=== PATIENT | female | born 1945 | race Caucasian/White ===

== ENCOUNTER 2016-12-27 20:50 | Emergency (ER) | payer MEDICARE, MEDICAID ==
[2016-12-27] MEDS ORDERED: IPRATROPIUM/ALBUTEROL 3 ML NEB INH STA (21:06)
[2016-12-27] MEDS ORDERED: IPRATROPIUM/ALBUTEROL 3 ML NEB INH ONE (21:29)
[2016-12-27] MEDS ORDERED: AZITHROMYCIN 250 MG TABLET PO STA (22:05)
[2016-12-27] MEDS ORDERED: AZITHROMYCIN 250 MG TABLET PO ONE (22:17)
== END 2016-12-27 22:26 | disposition home or self-care (01) ==
DX: J18.9 Pneumonia, unspecified organism (principal); I10 Essential (primary) hypertension; E11.42 Type 2 diabetes mellitus with diabetic polyneuropathy; Z79.4 Long term (current) use of insulin; I51.9 Heart disease, unspecified; I25.10 Atherosclerotic heart disease of native coronary artery without angina pectoris; I25.2 Old myocardial infarction; J44.9 Chronic obstructive pulmonary disease, unspecified; K21.9 Gastro-esophageal reflux disease without esophagitis; Z79.82 Long term (current) use of aspirin
CPT/HCPCS: 36415; 71020; 80053; 83690; 83880; 84484; 85025; 87275; 87276; 93005; 93010; 94640; 99283; 99284; A9270; J7620

== ENCOUNTER 2017-06-19 19:28 | Emergency (ER) | payer MEDICARE, MEDICAID ==
[2017-06-19] MEDS ORDERED: CYCLOBENZAPRINE 10 MG TABLET PO STA (20:18)
--- NOTE | 2017-06-19 20:22 | ED Physician Documentation ---
PD HPI URI - Stated complaint Stated Complaint: RASH/COUGH - Chief complaint Chief Complaint: Resp - History obtained from History obtained from: Patient - History of Present Illness Timing - onset: Other (71-year-old woman with history of coronary disease status post remote bypass presents with productive cough, nasal drainage and left ear pain associated with sore throat and a rash on the front of her neck over the last 5 days. She has had 2 episodes where her left eye briefly hurt but there was no loss of vision. She also has had some urinary frequency and wonders if she might have a bladder infection.) Review of Systems Constitutional: reports: Fatigue. denies: Fever, Chills Ears: reports: Ear pain. denies: Loss of hearing Nose: reports: Rhinorrhea / runny nose, Congestion Throat: reports: Sore throat Cardiac: denies: Chest pain / pressure, Palpitations Respiratory: reports: Cough. 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 Cardiovascular: CABG - Present Medications Home Medications: Ambulatory Orders Medication Instructions Recorded Confirmed Aspirin [Aspirin EC] 81 mg PO DAILY 02/17/14 10/02/16 Clopidogrel [Plavix] 75 mg PO DAILY 02/17/14 10/02/16 Albuterol Sulfate [Proair Hfa] 8.5 gm IH Q4H PRN 05/23/15 10/02/16 Lisinopril 20 mg PO DAILY 05/23/15 10/02/16 Amlodipine Besylate 10 mg PO DAILY 09/14/15 10/02/16 Atorvastatin Calcium 40 mg PO QPM 09/14/15 10/02/16 Clopidogrel Bisulfate [Plavix] 75 mg PO DAILY 09/14/15 10/02/16 Fluticasone Propionate [Flonase 9.9 ml NS BID 09/14/15 10/02/16 Allergy Relief] Insulin Aspart (Vial) [NovoLOG] 10 unit SUBQ TID 09/14/15 10/02/16 Isosorbide Dinitrate 30 mg PO DAILY 09/14/15 10/02/16 Metoprolol Tartrate 50 mg PO TID 09/14/15 10/02/16 Ranitidine HCl 150 mg PO BID 09/14/15 10/02/16 Cephalexin [Keflex] 500 mg PO TID #15 capsule 08/30/16 10/02/16 Clotrimazole/Betamethasone Dip 1 applic TP TID #15 cream..g. 08/30/16 10/02/16 [Clotrimazole-Betamethasone Crm] Mupirocin 1 applic TP TID #15 oint...g. 08/30/16 10/02/16 Azithromycin [Zithromax] 250 mg PO DAILY #4 tablet 12/27/16 Benzonatate [Tessalon Perle] 100 mg PO Q8H PRN #12 capsule 12/27/16 Albuterol Sulfate [Proventil Hfa 1 - 2 puffs IH Q4H PRN #1 06/19/17 Inhaler] hfa.aer.ad Cephalexin [Keflex] 500 mg PO QID #40 capsule 06/19/17 Cyclobenzaprine [Flexeril] 10 mg PO TID PRN #20 tablet 06/19/17 predniSONE [Deltasone] 60 mg PO DAILY 5 Days 06/19/17 - Allergies Allergies/Adverse Reactions: Allergies Allergy/AdvReac Type Severity Reaction Status Date / Time codeine Allergy Intermediate Rash Verified 10/14/16 15:29 - Social History Does the pt smoke?: No Smoking Status: Never smoker Does the pt drink ETOH?: No Does the pt have substance abuse?: No - Immunizations Immunizations are current?: No - POLST Patient has POLST: No PD ED PE NORMAL - Vitals Vital signs reviewed: Yes - General General: Alert and oriented X 3, No acute distress - HEENT HEENT: PERRL, EOMI, Other (Serous otitis on the left, mild eczema ant L neck. Oropharynx appears normal.) - Neck Neck: Supple, no meningeal sign, No bony TTP - Cardiac Cardiac: RRR, No murmur - Respiratory Respiratory: No respiratory distress, Other (Rhonchorous throughout) - Abdomen Abdomen: Non tender - Derm Derm: No rash - Neuro Neuro: Alert and oriented X 3, Normal speech - Psych Psych: Normal mood, Normal affect Results - Vitals Vitals: Vital Signs - 24 hr 06/19/17 19:34 Temperature 36.5 C Heart Rate 63 Respiratory 18 Rate Blood Pressure 155/78 H O2 Saturation 99 Oxygen O2 Source Room air - Labs Labs: Laboratory Tests 06/19/17 20:25 Urine Color LT. YELLOW Urine Clarity CLEAR Urine pH 6.5 Ur Specific [place] 1.015 Urine Protein 100 H Urine Glucose (UA) NEGATIVE Urine Ketones NEGATIVE Urine Occult Blood NEGATIVE Urine Nitrite NEGATIVE Urine Bilirubin NEGATIVE Urine Urobilinogen 0.2 (NORMAL) Ur Leukocyte Esterase NEGATIVE Urine RBC None Seen Urine WBC 11-25 H Ur Squamous Epith Cells NONE SEEN Urine Bacteria Few Ur Microscopic Review INDICATED Urine Culture Comments INDICATED PD MEDICAL DECISION MAKING - ED course ED course: 71-year-old woman with multiple complaints, found to have a UTI, bronchitis with potential underlying COPD although she has never been formally diagnosed with this, serous otitis on the left and eczema. Should be well treated with combination of steroids, Keflex, albuterol. Departure - Departure Disposition: Home, Self Care Clinical Impression: Bronchitis, Eczema of face UTI (urinary tract infection) Qualifiers: Urinary tract infection type: acute cystitis Hematuria presence: without hematuria Qualified Code(s): N30.00 - Acute cystitis without hematuria Condition: Good Record reviewed to determine appropriate education?: Yes Instructions: ED Bronchitis Asthmatic, ED UTI Cystitis Female Prescriptions: predniSONE [Deltasone] 60 mg PO DAILY 5 Days Cyclobenzaprine [Flexeril] 10 mg PO TID PRN #20 tablet PRN Reason: Pain Cephalexin [Keflex] 500 mg PO QID #40 capsule Albuterol Sulfate [Proventil Hfa Inhaler] 1 - 2 puffs IH Q4H PRN #1 hfa.aer.ad PRN Reason: Cough Comments: Call your doctor to arrange a follow-up appointment, make the next available appointment. In the interim, return anytime if worse or if new symptoms develop. Your blood pressure was elevated today on check into the emergency department. This does not mean that you have hypertension, it is a common phenomenon to come to the emergency department and have elevated blood pressure. I recommend that she see her primary care physician within the week to have it rechecked when you are feeling better.
[2017-06-19] MEDS ORDERED: CYCLOBENZAPRINE 10 MG TABLET PO ONE (20:31)
[2017-06-19 20:37] LABS: BILIRUBIN,URINE NEGATIVE (NEGATIVE); PH,URINE 6.5 PH (5.0-7.5)
[2017-06-19 20:38] LABS: UA w/ MICROSCOPIC CHARGE YES
[2017-06-19 20:47] LABS: UR CULTURE IF IND INDICATED
[2017-06-19] MEDS ORDERED: CEPHALEXIN 250 MG CAPSULE PO STA (20:48)
[2017-06-19] MEDS ORDERED: predniSONE 20 MG TABLET PO STA (20:52)
[2017-06-19] MEDS ORDERED: CEPHALEXIN 250 MG CAPSULE PO ONE (21:06)
[2017-06-19] MEDS ORDERED: predniSONE 20 MG TABLET ONE (21:07)
[2017-06-19 21:09] VITALS: BP 162/69
== END 2017-06-19 21:09 | disposition home or self-care (01) ==
LOC: ED 19:28
DX: J40 Bronchitis, not specified as acute or chronic (principal); L30.9 Dermatitis, unspecified; N30.00 Acute cystitis without hematuria; I10 Essential (primary) hypertension; E11.42 Type 2 diabetes mellitus with diabetic polyneuropathy; I25.2 Old myocardial infarction; I25.10 Atherosclerotic heart disease of native coronary artery without angina pectoris; Z95.1 Presence of aortocoronary bypass graft; Z79.82 Long term (current) use of aspirin; Z79.4 Long term (current) use of insulin; Z86.73 Personal history of transient ischemic attack (TIA), and cerebral infarction without residual deficits
CPT/HCPCS: 81001; 87086; 99283; A9270; J7512; 81003

== ENCOUNTER 2017-08-13 14:03 | Outpatient (CLI) | payer MEDICARE, MEDICAID ==
--- NOTE | 2017-08-14 12:59 | Mammography Report ---
DIGITAL SCREENING MAMMOGRAM: 08/13/2017 CLINICAL INDICATION: A 71-year-old for screening. COMPARISON: 08/2013, 01/2012, 04/2010 TECHNIQUE: Routine CC and MLO projections were obtained of the breasts. FINDINGS: The breasts again demonstrate scattered fibroglandular densities bilaterally. Coarse, typ ically benign calcifications are present. No suspicious masses, clustered microcalcifications, or re gions of architectural distortion are identified. IMPRESSION: BENIGN FINDINGS. RECOMMENDATION: Routine annual screening unless otherwise clinically indicated. BIRADS CATEGORY 2 - BENIGN FINDINGS. STANDARD QUALIFYING STATEMENTS 1. This examination was reviewed with the aid of Computer-Aided Detection (CAD). 2. A negative or benign imaging report should not delay biopsy if clinically suspicious findings are present. Consider surgical consultation if warranted. More than 5% of cancers are not identified by i maging. 3. Dense breasts may obscure an underlying neoplasm. JOB #: [id number] EXT JOB #:[id number]
== END 2017-08-13 14:04 | disposition home or self-care (01) ==
LOC: DI.N 14:03
PROVIDERS: ATTEND Family Medicine
DX: Z12.31 Encounter for screening mammogram for malignant neoplasm of breast (principal)
CPT/HCPCS: 77067

== ENCOUNTER 2017-09-07 16:21 | Emergency (ER) | payer MEDICARE, MEDICAID ==
[2017-09-07 16:33] VITALS: BP 186/76
[2017-09-07] MEDS ORDERED: AZITHROMYCIN 250 MG TABLET PO STA (16:46)
[2017-09-07] MEDS ORDERED: CYCLOBENZAPRINE 10 MG TABLET PO STA (16:46)
--- NOTE | 2017-09-07 16:46 | ED Physician Documentation ---
History of Present Illness - Stated complaint Stated Complaint: NECK/EAR PX - Chief complaint Chief Complaint: General - History obtained from History obtained from: Patient, Family - History of Present Illness Timing: How many days ago (2) Pain level max: 7 Pain level now: 7 Improved by: remaining still Worsened by: movement - Additonal information Additional information: Patient is a 71-year-old female who presents to the emergency department with bilateral ear pain, nasal congestion, mild dry cough as well as bilateral neck pain worsening for the past few days. States is sleeping on new pillows. Has not taken anything for the pain at home. Denies any fevers. No vomiting. No recent travel. Review of Systems Constitutional: denies: Fever, Chills Ears: reports: Ear pain Nose: reports: Rhinorrhea / runny nose, Congestion GI: denies: Abdominal Pain, Nausea, Vomiting Skin: denies: Rash Musculoskeletal: denies: Back pain Neurologic: denies: Focal weakness, Numbness, Confused, Altered mental status PD PAST MEDICAL HISTORY - Past Medical History Cardiovascular: Hypertension, Coronary artery disease, [place], Murmur Respiratory: COPD Neuro: CVA, Peripheral neuropathy Endocrine/Autoimmune: Type 2 diabetes GI: GERD : Renal insuffiency, Nocturia, Frequency Psych: Schizophrenia Musculoskeletal: Chronic back pain - Past Surgical History 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 08/30/16 09/07/17 Albuterol Sulfate [Proventil Hfa 1 - 2 puffs IH Q4H PRN #1 06/19/17 09/07/17 Inhaler] hfa.aer.ad Azithromycin [Zithromax] 250 mg PO DAILY #4 tablet 09/07/17 Cyclobenzaprine [Flexeril] 10 mg PO TID PRN #20 tablet 09/07/17 Glipizide [Glipizide Xl] 5 mg PO DAILY 09/07/17 09/07/17 - Allergies Allergies/Adverse Reactions: Allergies Allergy/AdvReac Type Severity Reaction Status Date / Time codeine Allergy Intermediate Rash Verified 10/14/16 15:29 - Social History Does the pt smoke?: No Smoking Status: Never smoker Does the pt drink ETOH?: No Does the pt have substance abuse?: No - Immunizations Immunizations are current?: No - POLST Patient has POLST: No PD ED PE NORMAL - Vitals Vital signs reviewed: Yes - General General: Alert and oriented X 3, No acute distress - HEENT HEENT: Other (Bilateral tympanic membranes are erythematous, dull, bulging with loss of landmarks. Fluid present bilaterally.) - Neck Neck: Supple, no meningeal sign, No bony TTP, No adenopathy, No JVD, No bruit, Other (Paraspinal muscle spasm, left greater than right. Negative Kernig and Brudzinski signs. Pain worsens with movement to the left or right. Has approximately [address].) - Cardiac Cardiac: RRR - Respiratory Respiratory: No respiratory distress, Clear bilaterally - Abdomen Abdomen: Soft, Non tender, Non distended - Back Back: No CVA TTP, No spinal TTP - Derm Derm: Warm and dry, No rash - Neuro Neuro: Alert and oriented X 3, vice president regulatory 2-12 intact, No motor deficit, No sensory deficit, Normal speech - Psych Psych: Normal mood, Normal affect Results - Vitals Vitals: Vital Signs - 24 hr 09/07/17 16:28 Temperature 36.6 C Heart Rate 73 Respiratory 18 Rate Blood Pressure 186/76 H O2 Saturation 99 Oxygen O2 Source Room air PD MEDICAL DECISION MAKING - ED course Complexity details: reviewed old records, considered differential, d/w patient, d/w family ED course: Patient is a 71-year-old female who presents to the emergency department with what appears to be cervical spine muscle spasm as well as a bilateral acute otitis media. Will place on antibiotics for the ear infection and muscle relaxants for the neck muscle spasm. These have occurred in her in the past and have responded well to Flexeril in the past. No evidence of meningitis, subarachnoid hemorrhage. No neurological deficits. No evidence of carotid artery dissection or vertebral artery dissection. Patient is well-appearing, nontoxic. Afebrile. Patient counseled regarding signs and symptoms for which I believe and urgent re-evaluation would be necessary. Patient with good understanding of and agreement to plan and is comfortable going home at this time This document was made in part using voice recognition software. While efforts are made to proofread this document, sound alike and grammatical errors may occur. Departure - Departure Disposition: Home, Self Care Clinical Impression: Neck muscle spasm Otitis media Qualifiers: Otitis media type: suppurative Chronicity: acute Laterality: bilateral Recurrence: not specified as recurrent Spontaneous tympanic membrane rupture: without spontaneous rupture Qualified Code(s): H66.003 - Acute suppurative otitis media without spontaneous rupture of ear drum, bilateral Condition: Good Instructions: ED Otitis Media Acute Adult Follow-Up: JOSE YOON [Primary Care Provider] - Within 1 week Prescriptions: Azithromycin [Zithromax] 250 mg PO DAILY #4 tablet Cyclobenzaprine [Flexeril] 10 mg PO TID PRN #20 tablet PRN Reason: Spasms Comments: Return if you worsen. This should improve over the next few days. Continue to gently range her neck at home. You can use Tylenol as needed for pain. Take all antibiotics until gone. Discharge Date/Time: 09/07/17 17:10
[2017-09-07] MEDS ORDERED: ACETAMINOPHEN 325 MG TABLET PO STA (16:47)
[2017-09-07] MEDS ORDERED: ACETAMINOPHEN 325 MG TABLET PO ONE (16:58)
[2017-09-07] MEDS ORDERED: AZITHROMYCIN 250 MG TABLET PO ONE (16:59)
[2017-09-07] MEDS ORDERED: CYCLOBENZAPRINE 10 MG TABLET PO ONE (16:59)
== END 2017-09-07 17:10 | disposition home or self-care (01) ==
LOC: ED 16:21
DX: M62.838 Other muscle spasm (principal); H66.003 Acute suppurative otitis media without spontaneous rupture of ear drum, bilateral; H66.93 Otitis media, unspecified, bilateral; I10 Essential (primary) hypertension; I25.10 Atherosclerotic heart disease of native coronary artery without angina pectoris; E11.42 Type 2 diabetes mellitus with diabetic polyneuropathy; Z86.73 Personal history of transient ischemic attack (TIA), and cerebral infarction without residual deficits
CPT/HCPCS: 99283; A9270

== ENCOUNTER 2017-09-08 13:28 | Emergency (ER) | payer MEDICARE, MEDICAID ==
[2017-09-08] MEDS ORDERED: KETOROLAC 60 MG/2 ML VIAL IM STA (16:00)
[2017-09-08] MEDS ORDERED: DEXAMETHASONE 10 MG/ML VIAL PO STA (16:00)
--- NOTE | 2017-09-08 16:04 | ED Physician Documentation ---
PD HPI HEENT - Stated complaint Stated Complaint: NECK PX,BILATERAL EAR PX - Chief complaint Chief Complaint: Heent - History obtained from History obtained from: Patient, Family - History of Present Illness Timing - onset: How many days ago (5) Timing - duration: Days (5) Timing - details: Gradual onset, Still present Location: Right ear, Left ear, Other (neck) Associated symptoms: Fever, Congestion, Rhinorrhea, Swollen nodes, Headache, Cough Similar symptoms before: Diagnosis (OM) Recently seen: Emergency Dept - Additional information Additional information: 71-year-old female was seen in the emergency department yesterday for cough and congestion is been going on for about 5 days. She was diagnosed with otitis media. She was placed on azithromycin and given some Flexeril for her neck pain. She has a very stiff neck and this is been a central feature and the reason she is come back today for evaluation. She needs something stronger for pain in her neck. She is feeling some bloating in her abdomen which she believes may be related to taking the antibiotic. Review of Systems Constitutional: reports: Myalgias, Fatigue. denies: Fever, Chills Eyes: denies: Decreased vision Ears: reports: Ear pain Nose: reports: Rhinorrhea / runny nose, Congestion Throat: reports: Sore throat Cardiac: denies: Chest pain / pressure, Palpitations Respiratory: reports: Cough. denies: Dyspnea GI: denies: Vomiting : denies: Dysuria Skin: denies: Rash Musculoskeletal: reports: Neck pain. 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 08/30/16 09/08/17 Albuterol Sulfate [Proventil Hfa 1 - 2 puffs IH Q4H PRN #1 06/19/17 09/08/17 Inhaler] hfa.aer.ad Azithromycin [Zithromax] 250 mg PO DAILY #4 tablet 09/07/17 09/08/17 Cyclobenzaprine [Flexeril] 10 mg PO TID PRN #20 tablet 09/07/17 09/08/17 Glipizide [Glipizide Xl] 5 mg PO DAILY 09/07/17 09/08/17 Amox/Clav 875/125 [Augmentin] 1 each PO Q12H #20 tablet 09/08/17 traMADol [Ultram] 50 - 100 mg PO Q6H PRN #20 tablet 09/08/17 - Allergies Allergies/Adverse Reactions: Allergies Allergy/AdvReac Type Severity Reaction Status Date / Time codeine Allergy Intermediate Rash Verified 09/08/17 13:40 - Social History Does the pt smoke?: No Smoking Status: Never smoker Does the pt drink ETOH?: No Does the pt have substance abuse?: No - Immunizations Immunizations are current?: Yes - POLST Patient has POLST: No PD ED PE NORMAL - Vitals Vital signs reviewed: Yes (hypertensive) - General General: No acute distress, Well developed/nourished - HEENT HEENT: Atraumatic, PERRL, EOMI, Other (both TM's have erythema along the umbo with rounding of the umbo) - Neck Neck: No bony TTP, Other (The neck is stiff and there is significant paraspinous muscle spasms bilaterally worse on the left. ) - Cardiac Cardiac: RRR, No murmur - Respiratory Respiratory: No respiratory distress, Clear bilaterally - Abdomen Abdomen: Soft, Non tender - Back Back: No CVA TTP, No spinal TTP - Derm Derm: Normal color, Warm and dry, No rash - Extremities Extremities: No deformity, No edema - Neuro Neuro: No motor deficit, No sensory deficit Eye Opening: Spontaneous Motor: Obeys Commands Verbal: Oriented GCS Score: 15 - Psych Psych: Normal mood, Normal affect Results - Vitals Vitals: Vital Signs - 24 hr 09/08/17 13:37 Temperature 36.6 C Heart Rate 89 Respiratory 16 Rate Blood Pressure 156/78 H O2 Saturation 98 Oxygen O2 Source Room air PD MEDICAL DECISION MAKING - ED course Complexity details: reviewed old records, reviewed results, re-evaluated patient , considered differential, d/w patient, d/w family ED course: 71-year-old female with otitis media appears to have significant torticollis associated with this and here in the emergency department she is administered dexamethasone 10 mg orally and Toradol 60 mg IM. We will change her antibiotic and write a script for a limited amount of tramadol. Departure - Departure Disposition: 01 Home, Self Care Clinical Impression: Neck muscle spasm Otitis media Qualifiers: Otitis media type: suppurative Chronicity: acute Laterality: bilateral Recurrence: not specified as recurrent Spontaneous tympanic membrane rupture: without spontaneous rupture Qualified Code(s): H66.003 - Acute suppurative otitis media without spontaneous rupture of ear drum, bilateral Condition: Stable Instructions: ED Otitis Media Acute Adult, Torticollis Follow-Up: [facility] [Provider Group] Prescriptions: Amox/Clav 875/125 [Augmentin] 1 each PO Q12H #20 tablet traMADol [Ultram] 50 - 100 mg PO Q6H PRN #20 tablet PRN Reason: Pain
[2017-09-08] MEDS ORDERED: DEXAMETHASONE 10 MG/ML VIAL ONE (16:08)
[2017-09-08] MEDS ORDERED: KETOROLAC 60 MG/2 ML VIAL ONE (16:08)
[2017-09-08 17:04] VITALS: BP 155/79
== END 2017-09-08 17:09 | disposition home or self-care (01) ==
LOC: ED 13:28
DX: M43.6 Torticollis (principal); M62.838 Other muscle spasm; M54.2 Cervicalgia; H66.003 Acute suppurative otitis media without spontaneous rupture of ear drum, bilateral; I10 Essential (primary) hypertension; E11.42 Type 2 diabetes mellitus with diabetic polyneuropathy; Z79.84 Long term (current) use of oral hypoglycemic drugs; Z79.82 Long term (current) use of aspirin
CPT/HCPCS: 96372; 99283

== ENCOUNTER 2017-09-19 07:37 | Outpatient (CLI) | payer MEDICARE, MEDICAID | END 2017-09-19 07:38 | disposition short-term general hospital (02) | LOC: EMS 07:37 | PROVIDERS: ATTEND Surgery | DX: R06.02 Shortness of breath (principal) | CPT/HCPCS: A0425; A0427; A0888 ==

== ENCOUNTER 2017-09-22 13:52 | Outpatient (CLI) | payer MEDICARE, MEDICAID | END 2017-09-22 13:53 | disposition critical access hospital (66) | LOC: EMS 13:52 | PROVIDERS: ATTEND Surgery | DX: R47.81 Slurred speech (principal); G81.94 Hemiplegia, unspecified affecting left nondominant side | CPT/HCPCS: A0425; A0429 ==

== ENCOUNTER 2017-09-22 14:12 | Emergency (ER) | payer MEDICARE, MEDICAID ==
--- NOTE | 2017-09-22 14:24 | ED Physician Documentation ---
PD HPI FOCAL NEURO - Stated complaint Stated Complaint: POSS CVA - History obtained from History obtained from: Patient, Family, EMS - History of Present Illness Timing - onset: Other (71-year-old woman with chronic renal insufficiency, ischemic cardiomyopathy, per the family EF of 25%, and history of TIAs presents with slurred speech and left-sided deficits starting acutely at 1:30 PM and they are sure of the time of onset. There is no associated headache. In route her blood sugar was in the mid 300s. Blood pressure has been controlled, last check in route was approximately 130/80.) Review of Systems Ten Systems: 10 systems reviewed and negative Constitutional: reports: Reviewed and negative Nose: reports: Reviewed and negative Throat: reports: Reviewed and negative Cardiac: reports: Reviewed and negative PD PAST MEDICAL HISTORY - Past Medical History Cardiovascular: Hypertension, Coronary artery disease, [place], Murmur Respiratory: COPD Neuro: CVA, Peripheral neuropathy Endocrine/Autoimmune: Type 2 diabetes GI: GERD : Renal insuffiency, Nocturia, Frequency Psych: Schizophrenia Musculoskeletal: Chronic back pain - Past Surgical History 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, 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 Cardiovascular: CABG - Present Medications Home Medications: Ambulatory Orders Medication Instructions Recorded Confirmed Aspirin [Aspirin EC] 81 mg PO DAILY 02/17/14 09/22/17 Lisinopril 20 mg PO DAILY 05/23/15 09/22/17 Amlodipine Besylate 10 mg PO DAILY 09/14/15 09/22/17 Cyclobenzaprine [Flexeril] 10 mg PO TID PRN #20 tablet 09/07/17 09/22/17 Glipizide [Glipizide Xl] 5 mg PO DAILY 09/07/17 09/22/17 traMADol [Ultram] 50 - 100 mg PO Q6H PRN #20 tablet 09/08/17 09/22/17 Benzonatate [Tessalon Perle] 1 cap PO Q8HR PRN 09/22/17 09/22/17 Clopidogrel [Plavix] 75 mg PO DAILY 09/22/17 09/22/17 Furosemide 40 mg PO DAILY 09/22/17 09/22/17 Isosorbide Mononitrate ER [Imdur] 30 mg PO DAILY 09/22/17 09/22/17 Metoprolol Succinate 50 mg PO DAILY 09/22/17 09/22/17 Ranitidine HCl [Heartburn Relief] 1 tab PO BID 09/22/17 09/22/17 - Allergies Allergies/Adverse Reactions: Allergies Allergy/AdvReac Type Severity Reaction Status Date / Time codeine Allergy Intermediate Rash Verified 09/22/17 14:33 - Social History Does the pt smoke?: No Smoking Status: Never smoker Does the pt drink ETOH?: No Does the pt have substance abuse?: No - Family History Family history: reports: Non contributory - Immunizations Immunizations are current?: Yes - POLST Patient has POLST: No PD ED PE NORMAL - Vitals Vital signs reviewed: Yes - General General: Other (Slightly slow to answer questions but alert and oriented knows the month and the year.) - HEENT HEENT: Other (Large pterygian on the right) - Neck Neck: Supple, no meningeal sign, No bony TTP - Cardiac Cardiac: RRR, No murmur - Respiratory Respiratory: No respiratory distress, Clear bilaterally - Abdomen Abdomen: Soft, Non tender - Back Back: No CVA TTP, No spinal TTP - Extremities Extremities: No edema, No calf tenderness / cord - Psych Psych: Normal mood, Normal affect NIHSS - Time Time: 14:18 - Level of Consciousness Level of consciousness: (0) Alert, Keenly responsive LOC Questions: (0) Answers both Q's correct LOC Commands: (0) Performs both correctly - Gaze Best Gaze: (2) Forced deviation (to the right, does not look past midline to the left) - Visual Visual: (0) No loss - Facial Palsy Facial Palsy: (3) Complete paralysis (of the left) - Motor Arms (both separate) Motor Arm (right): (0) No drift Motor Arm (left): (4) No movement - Motor Legs (both separate) Motor Leg (right): (0) No drift Motor Leg (left): (1) Drift - Limb Ataxia Limb Ataxia: (0) Absent - Sensory Sensory: (2) [id number] loss (left arm) - Best Language Best Language: (0) No aphasia - Dysarthria Dysarthria: (1) [id number] dysarthria - Extinction and Inattention (formally neg Extinction and inattention: (2) Profound mireya-inattention or extinction to more than one modality (left side) - Total Score/Results Total Score/Result: 15 Results - Vitals Vitals: Vital Signs - 24 hr 09/22/17 09/22/17 09/22/17 14:18 14:30 14:45 Temperature 35.8 C L Heart Rate 76 79 76 Respiratory 17 16 20 Rate Blood Pressure 152/63 H 162/82 H 162/70 H O2 Saturation 98 97 97 09/22/17 09/22/17 09/22/17 15:00 15:01 15:15 Temperature Heart Rate 78 77 79 Respiratory 20 18 22 Rate Blood Pressure 151/90 H 142/72 H 179/70 H O2 Saturation 95 97 94 09/22/17 09/22/17 15:30 15:38 Temperature Heart Rate 78 77 Respiratory 20 18 Rate Blood Pressure 183/77 H 183/77 H O2 Saturation 93 95 Oxygen O2 Source Room air - EKG (time done) 1431 Rate: Rate (enter#) (75) Rhythm: NSR [employer]: Normal QRS: LVH Ischemia: Q waves (anterior), Non specific changes Computer interpretation: Agree with computer - Labs Labs: Laboratory Tests 09/22/17 09/22/17 09/22/17 14:41 14:41 14:41 WBC 6.0 RBC 4.62 Hgb 14.7 Hct 43.5 MCV 94.0 MCH 31.8 H MCHC 33.8 RDW 14.4 Plt Count 157 MPV 8.9 Neut # 4.8 Lymph # 0.6 L [place] # 0.5 Eos # 0.1 Baso # 0.0 Absolute Nucleated RBC 0.00 Nucleated RBC % 0.0 PT 12.7 H INR 1.1 Sodium 133 L Potassium 4.4 Chloride 99 L Carbon Dioxide 19 L Anion Gap 15.0 H BUN 41 H Creatinine 4.2 H Estimated GFR (MDRD) 10 L Glucose 268 H Calcium 9.4 Total Bilirubin 0.7 AST 35 ALT 31 Alkaline Phosphatase 74 Total Creatine Kinase 57 CK-MB (CK-2) Troponin I Total Protein 6.9 Albumin 3.4 Globulin 3.5 Albumin/Globulin Ratio 1.0 Lipase 31 09/22/17 14:41 WBC RBC Hgb Hct MCV MCH MCHC RDW Plt Count MPV Neut # Lymph # [place] # Eos # Baso # Absolute Nucleated RBC Nucleated RBC % PT INR Sodium Potassium Chloride Carbon Dioxide Anion Gap BUN Creatinine Estimated GFR (MDRD) Glucose Calcium Total Bilirubin AST ALT Alkaline Phosphatase Total Creatine Kinase CK-MB (CK-2) 3.9 Troponin I 0.22 Total Protein Albumin Globulin Albumin/Globulin Ratio Lipase Procedures - General procedure General procedure: She was difficulty for IV access, I personally placed a 20-gauge IV in the right in the R antecubital fossa after ChloraPrep which flushed well but could not draw labs on arrival. Using real-time ultrasound guidance. PD MEDICAL DECISION MAKING - ED course ED course: 71-year-old woman presents with signs and symptoms of acute CVA with left hemiplegia and hemineglect. NIH stroke scale 15. She was attended to immediately. CT of the head was without acute disease. Dr. Mark from [facility] tele-neurology consulted and spoke with the family, consent was obtained for TPA after discussion of the risks and benefits. The patient nodded her consent in the whole family was in agreement, the daughter signing the form.They understand the risks of intracranial hemorrhage and other bleeding and the fact that TPA does not resolve all cases stroke. Tpa bolus given at 3:00pm - Critical Care Time(min): 40 Time Includes: Direct patient care, Review records, Reassess patient, Document care, Coordinate care, Medical consult, Family consult for tx sep Departure - Departure Disposition: 02 Transfer Acute Care Hosp Clinical Impression: Cerebrovascular accident (CVA) Qualifiers: CVA mechanism: embolism Precerebral and cerebral artery: middle cerebral artery Laterality of affected vessel: right Qualified Code(s): I63.411 - Cerebral infarction due to embolism of right middle cerebral artery ARF (acute renal failure) Qualifiers: Acute renal failure type: unspecified Qualified Code(s): N17.9 - Acute kidney failure, unspecified Condition: Critical
--- NOTE | 2017-09-22 14:38 | CT Preliminary Report ---
Exam: CT HEAD W/O STROKE PROTOCOL IMPRESSION: Generalized age-related cortical atrophic changes without evidence of acute intracranial abnormality. [facility] SITE ID: [id number]
--- NOTE | 2017-09-22 14:41 | CT Report ---
EXAM: CT HEAD EXAM DATE: 09/22/2017 02:30 PM. CLINICAL HISTORY: CVA R side defects. COMPARISON: 07/28/2006. TECHNIQUE: Multiaxial CT images were obtained from the foramen magnum to the vertex. IV contrast: Non e. Reformats: Coronal. In accordance with CT protocol optimization, one or more of the following dose reduction techniques w ere utilized for this exam: automated exposure control, adjustment of mA and/or KV based on patient s ize, or use of iterative reconstructive technique. FINDINGS: Parenchyma: No intraparenchymal hemorrhage. No evidence of mass, midline shift, or CT findings of acu te infarction. Roman-white differentiation is distinct. Diffuse chronic microangiopathic white matter changes. Extraaxial Spaces: Normal for age. No subdural or epidural collections. Ventricles: The ventricles and cortical sulci are enlarged, consistent with age-related tissue loss. Sinuses and orbits: Imaged paranasal sinuses, orbits, and mastoids show no significant abnormality. Bones: Unremarkable. Other: Calcifications of intracranial carotid and vertebral arteries. IMPRESSION: Generalized age-related cortical atrophic changes without evidence of acute intracranial abnormality. [facility] Referring Provider Line: [phone] SITE ID: [id number]
[2017-09-22] MEDS ORDERED: TRANEXAMIC ACID 1,000 MG/10 ML VIAL ONE (14:46)
[2017-09-22] MEDS ORDERED: TENECTEPLASE 50 MG KIT ONE (14:47)
[2017-09-22] MEDS ORDERED: ALTEPLASE 100 MG VIAL ONE (14:47)
[2017-09-22 14:48] LABS: BASOPHILS % (AUTO) 0.3 %; EOSINOPHILS # (AUTO) 0.1 10^3/uL (0.0-0.7); EOSINOPHILS % (AUTO) 0.9 %; HCT - HEMATOCRIT 43.5 % (37.0-47.0); HGB - HEMOGLOBIN 14.7 g/dL (12.0-16.0); LYMPHOCYTES # (AUTO) 0.6 10^3/uL (1.5-3.5); LYMPHOCYTES % (AUTO) 10.1 %; MEAN CORPUSCULAR HEMOGLOBIN 31.8 pg (27.0-31.0); MEAN CORPUSCULAR HGB CONC 33.8 g/dL (32.0-36.0); MEAN PLATELET VOLUME 8.9 fL (7.9-10.8); MONOCYTES # (AUTO) 0.5 10^3/uL (0.0-1.0); MONOCYTES % (AUTO) 8.7 %; NEUTROPHILS # (AUTO) 4.8 10^3/uL (1.5-6.6); RED BLOOD COUNT 4.62 10^6/uL (4.20-5.40); RED CELL DISTRIBUTION WIDTH 14.4 % (12.0-15.0)
[2017-09-22] MEDS ORDERED: ALTEPLASE 100 MG in WATER FOR INJECTION,STERILE 100 ML IV STA (14:55)
[2017-09-22 14:59] LABS: INR 1.1 (0.8-1.2); PT - PROTHROMBIN TIME 12.7 secs (9.9-12.6)
[2017-09-22 15:02] LABS: BILIRUBIN,TOTAL 0.7 mg/dL (0.2-1.0); CALCIUM 9.4 mg/dL (8.5-10.3); CREATININE 4.2 mg/dL (0.4-1.0); POTASSIUM 4.4 mmol/L (3.5-5.0); TOTAL PROTEIN 6.9 g/dL (6.7-8.2)
[2017-09-22 15:05] LABS: TROPONIN I 0.22 ng/mL (<0.49)
[2017-09-22 15:07] LABS: CREATINE KINASE MB 3.9 ng/mL (0.6-6.3)
[2017-09-22] MEDS ORDERED: ONDANSETRON 4 MG/2 ML VIAL ONE (15:32)
[2017-09-22] MEDS ORDERED: ONDANSETRON 4 MG/2 ML VIAL IVP STA (15:33)
[2017-09-22 15:39] VITALS: BP 183/77
== END 2017-09-22 15:45 | disposition short-term general hospital (02) ==
LOC: EDUNIT# → ED 14:12
DX: I63.411 Cerebral infarction due to embolism of right middle cerebral artery (principal); I25.5 Ischemic cardiomyopathy; I13.10 Hypertensive heart and chronic kidney disease without heart failure, with stage 1 through stage 4 chronic kidney disease, or unspecified chronic kidney disease; E11.22 Type 2 diabetes mellitus with diabetic chronic kidney disease; N18.9 Chronic kidney disease, unspecified; N17.9 Acute kidney failure, unspecified; R94.31 Abnormal electrocardiogram [ECG] [EKG]; E11.42 Type 2 diabetes mellitus with diabetic polyneuropathy; I25.10 Atherosclerotic heart disease of native coronary artery without angina pectoris; I25.2 Old myocardial infarction; Z95.1 Presence of aortocoronary bypass graft; Z79.82 Long term (current) use of aspirin; Z86.73 Personal history of transient ischemic attack (TIA), and cerebral infarction without residual deficits
CPT/HCPCS: 36415; 70450; 80053; 82550; 82553; 83690; 84484; 85025; 85610; 93005; 96365; 96375; 99291; J2997; Q3014; 99285

== ENCOUNTER 2017-10-30 16:17 | Emergency (ER) | payer MEDICARE, MEDICAID ==
[2017-10-30] MEDS ORDERED: cephALEXin 250 MG CAPSULE PO STA (18:14)
--- NOTE | 2017-10-30 18:15 | ED Physician Documentation ---
PD HPI LOWER EXT INJURY - Stated complaint Stated Complaint: LT LEG SWOLLEN - Chief complaint Chief Complaint: Ext Problem - History obtained from History obtained from: Patient - History of Present Illness PD HPI LOW EXT INJURY LOCATION: Other (She banged into something a month ago and has a wound on her left alfaro that is not painful but not healing either. She says she was on antibiotics, does not know which one, is not currently.) Review of Systems Constitutional: reports: Reviewed and negative Throat: reports: Reviewed and negative Cardiac: reports: Reviewed and negative Respiratory: reports: Reviewed and negative PD PAST MEDICAL HISTORY - Past Medical History Past Medical History: Yes Cardiovascular: Hypertension, Coronary artery disease, [place], Murmur Respiratory: COPD Neuro: CVA, Peripheral neuropathy Endocrine/Autoimmune: Type 2 diabetes GI: GERD : Renal insuffiency, Nocturia, Frequency Psych: Schizophrenia Musculoskeletal: Chronic back pain - Past Surgical History 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, 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 Cardiovascular: CABG - Present Medications Home Medications: Ambulatory Orders Medication Instructions Recorded Confirmed Aspirin [Aspirin EC] 81 mg PO DAILY 02/17/14 09/22/17 Lisinopril 20 mg PO DAILY 05/23/15 09/22/17 Amlodipine Besylate 10 mg PO DAILY 09/14/15 09/22/17 Cyclobenzaprine [Flexeril] 10 mg PO TID PRN #20 tablet 09/07/17 09/22/17 Glipizide [Glipizide Xl] 5 mg PO DAILY 09/07/17 09/22/17 traMADol [Ultram] 50 - 100 mg PO Q6H PRN #20 tablet 09/08/17 09/22/17 Benzonatate [Tessalon Perle] 1 cap PO Q8HR PRN 09/22/17 09/22/17 Clopidogrel [Plavix] 75 mg PO DAILY 09/22/17 09/22/17 Furosemide 40 mg PO DAILY 09/22/17 09/22/17 Isosorbide Mononitrate ER [Imdur] 30 mg PO DAILY 09/22/17 09/22/17 Metoprolol Succinate 50 mg PO DAILY 09/22/17 09/22/17 Ranitidine HCl [Heartburn Relief] 1 tab PO BID 09/22/17 09/22/17 Cephalexin [Keflex] 500 mg PO QID #40 capsule 10/30/17 - Allergies Allergies/Adverse Reactions: Allergies Allergy/AdvReac Type Severity Reaction Status Date / Time codeine Allergy Intermediate Rash Verified 10/30/17 16:33 - Social History Does the pt smoke?: No Smoking Status: Never smoker Does the pt drink ETOH?: No Does the pt have substance abuse?: No - Immunizations Immunizations are current?: Yes - POLST Patient has POLST: No PD ED PE NORMAL - Vitals Vital signs reviewed: Yes - General General: Alert and oriented X 3, No acute distress - Extremities Extremities: Other (There is a wound a little bigger than a quarter with granulation and purulent base that is not too deep on the anterior lower Left alfaro with mild surrounding cellulitis but no tenderness.) - Neuro Neuro: Alert and oriented X 3, Normal speech Results - Vitals Vitals: Vital Signs - 24 hr 10/30/17 10/30/17 16:28 18:22 Temperature 36.1 C L 35.9 C L Heart Rate 89 81 Respiratory 18 20 Rate Blood Pressure 144/82 H 146/58 H O2 Saturation 100 98 Oxygen O2 Source Room air - Rads (name of study) L tib fib Radiology: EMP read contemporaneously (neg) Departure - Departure Disposition: 01 Home, Self Care Clinical Impression: Nonhealing nonsurgical wound Condition: Good Record reviewed to determine appropriate education?: Yes Instructions: ED Wound Care Prescriptions: Cephalexin [Keflex] 500 mg PO QID #40 capsule Comments: Call your doctor to arrange a follow-up appointment, make the next available appointment. In the interim, return anytime if worse or if new symptoms develop. We are performing a wound culture, the results should be done in 48-72 hours. If antibiotic change is necessary we will call you. Return if worse in the meantime, especially if you develop increased pain, fevers, cannot keep down the medication. Otherwise follow-up with your physician in approximately 2-3 days. Your blood pressure was elevated today on check into the emergency department. This does not mean that you have hypertension, it is a common phenomenon to come to the emergency department and have elevated blood pressure. I recommend that you see your primary care physician within the week to have it rechecked when you are feeling better.
--- NOTE | 2017-10-30 18:51 | XRAY Report ---
EXAM: LEFT TIBIA/FIBULA RADIOGRAPHY EXAM DATE: 10/30/2017 06:25 PM. CLINICAL HISTORY: Nonhealing wound. COMPARISON: None. TECHNIQUE: 2 views. FINDINGS: Bones: Osteopenia. No definite fracture or other bone lesion. Joints: The visualized knee and ankle joints are normal. No effusions. Soft Tissues: Surgical clips in soft tissues posterior and medial to distal femur and proximal tibia. No other foreign body or soft tissue gas. Vascular calcifications. IMPRESSION: No acute disease. [facility] Referring Provider Line: [phone] SITE ID: [id number]
[2017-10-30 19:36] VITALS: BP 154/72
== END 2017-10-30 19:30 | disposition home or self-care (01) ==
LOC: ED 16:17
DX: S81.802D Unspecified open wound, left lower leg, subsequent encounter (principal); X58.XXXD Exposure to other specified factors, subsequent encounter; I10 Essential (primary) hypertension; I25.10 Atherosclerotic heart disease of native coronary artery without angina pectoris; Z95.1 Presence of aortocoronary bypass graft; I25.2 Old myocardial infarction; J44.9 Chronic obstructive pulmonary disease, unspecified; Z86.73 Personal history of transient ischemic attack (TIA), and cerebral infarction without residual deficits; E11.42 Type 2 diabetes mellitus with diabetic polyneuropathy; Z79.84 Long term (current) use of oral hypoglycemic drugs; K21.9 Gastro-esophageal reflux disease without esophagitis; Z79.82 Long term (current) use of aspirin
CPT/HCPCS: 73590; 87070; 87205; 99283; A9270

== ENCOUNTER 2018-01-13 20:25 | Emergency (ER) | payer MEDICARE, MEDICAID ==
--- NOTE | 2018-01-13 21:35 | ED Physician Documentation ---
PD HPI SKIN - Stated complaint Stated Complaint: RASH/EAR PX - Chief complaint Chief Complaint: Heent - History obtained from History obtained from: Patient Review of Systems Constitutional: denies: Fever, Chills Eyes: denies: Photophobia Ears: denies: Loss of hearing, Ear pain Nose: denies: Rhinorrhea / runny nose, Congestion GI: denies: Abdominal Pain, Vomiting, Diarrhea PD PAST MEDICAL HISTORY - Past Medical History Cardiovascular: Hypertension, Coronary artery disease, [place], Murmur Respiratory: COPD Neuro: CVA, Peripheral neuropathy Endocrine/Autoimmune: Type 2 diabetes GI: GERD : Renal insuffiency, Nocturia, Frequency Psych: Schizophrenia Musculoskeletal: Chronic back pain - Past Surgical History 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, 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 Cardiovascular: CABG - Present Medications Home Medications: Ambulatory Orders Medication Instructions Recorded Confirmed Aspirin [Aspirin EC] 81 mg PO DAILY 02/17/14 09/22/17 Lisinopril 20 mg PO DAILY 05/23/15 09/22/17 Amlodipine Besylate 10 mg PO DAILY 09/14/15 09/22/17 Glipizide [Glipizide Xl] 5 mg PO DAILY 09/07/17 09/22/17 Clopidogrel [Plavix] 75 mg PO DAILY 09/22/17 09/22/17 Furosemide 40 mg PO DAILY 09/22/17 09/22/17 Isosorbide Mononitrate ER [Imdur] 30 mg PO DAILY 09/22/17 09/22/17 Metoprolol Succinate 50 mg PO DAILY 09/22/17 09/22/17 Ranitidine HCl [Heartburn Relief] 1 tab PO BID 09/22/17 09/22/17 Cephalexin [Keflex] 500 mg PO TID #21 capsule 01/13/18 Mupirocin 1 applic TP TID #15 oint...g. 01/13/18 - Allergies Allergies/Adverse Reactions: Allergies Allergy/AdvReac Type Severity Reaction Status Date / Time codeine Allergy Intermediate Rash Verified 01/13/18 20:35 - Social History Does the pt smoke?: No Smoking Status: Never smoker Does the pt drink ETOH?: No Does the pt have substance abuse?: No - Immunizations Immunizations are current?: Yes - POLST Patient has POLST: No PD ED PE NORMAL - Vitals Vital signs reviewed: Yes - General General: Alert and oriented X 3, Well developed/nourished - HEENT HEENT: Moist mucous membranes, Pharynx benign. No: Ears normal (right ear canal with redness and swelling. Cannot see the TM due to some drainage and ) - Neck Neck: Supple, no meningeal sign, No adenopathy - Cardiac Cardiac: RRR, No murmur - Respiratory Respiratory: Clear bilaterally - Derm Derm: Normal color, Warm and dry - Extremities Extremities: No deformity, No tenderness to palpate - Neuro Neuro: Alert and oriented X 3, No motor deficit, Normal speech Results - Vitals Vitals: Oxygen O2 Source Room air PD MEDICAL DECISION MAKING - ED course Complexity details: considered differential, d/w patient Departure - Departure Disposition: 01 Home, Self Care Clinical Impression: Rash of neck, Impetigo Otitis externa Qualifiers: Otitis externa type: diffuse Chronicity: acute Laterality: right Qualified Code (s): H60.311 - Diffuse otitis externa, right ear Condition: Stable Record reviewed to determine appropriate education?: Yes Instructions: ED Impetigo Ch, ED Otitis Externa Follow-Up: JOSE YOON [Primary Care Provider] - Prescriptions: Cephalexin [Keflex] 500 mg PO TID #21 capsule Mupirocin 1 applic TP TID #15 oint...g. Comments: For the year, it looks like an ear canal infection. Use the Cortisporin eardrops if the 2-3 hours while awake for the next 3-5 days. This could possibly be the same infection is on the neck as it might have transferred just with touching or so. The neck rash looks like a superficial bacterial infection called impetigo. Use mupirocin topical antibiotic 2-3 times a day after cleansing the area with soap and water. Also use cephalexin oral antibiotic for the infection 3 times a day for a week. Recheck if not improving over the next several days on either area. Discharge Date/Time: 01/13/18 22:30
[2018-01-13] MEDS ORDERED: MUPIROCIN 2% OINT 1 GM TOP STA (21:58)
[2018-01-13] MEDS ORDERED: NEOMYCIN/POLYMYX/HC OTIC DROPS RIGHTEAR STA (21:58)
[2018-01-13] MEDS ORDERED: cephALEXin 250 MG CAPSULE PO STA (21:58)
[2018-01-13 22:32] VITALS: BP 137/52
== END 2018-01-13 22:30 | disposition home or self-care (01) ==
LOC: ED 20:25
DX: R21 Rash and other nonspecific skin eruption (principal); L01.00 Impetigo, unspecified; H60.311 Diffuse otitis externa, right ear; I25.10 Atherosclerotic heart disease of native coronary artery without angina pectoris; I25.2 Old myocardial infarction; I10 Essential (primary) hypertension; E11.42 Type 2 diabetes mellitus with diabetic polyneuropathy; Z95.1 Presence of aortocoronary bypass graft
CPT/HCPCS: 99283; A9270

== ENCOUNTER 2018-04-13 | Outpatient (CLI) | END 2018-04-13 10:54 | disposition critical access hospital (66) | CPT/HCPCS: A0425; A0427 ==

== ENCOUNTER 2018-04-13 11:14 | Inpatient (IN) | payer MEDICARE, MEDICAID ==
[2018-04-13] MEDS ORDERED: SODIUM CHLORIDE 0.9% 1,000 ML IV ONE (11:27)
--- NOTE | 2018-04-13 11:32 | ED Physician Documentation ---
PD HPI CHEST PAIN - Stated complaint Stated Complaint: CP - Chief complaint Chief Complaint: Cardiac - History obtained from History obtained from: Patient, Family, EMS - History of Present Illness Timing - onset: Enter time (929), Today Timing - onset during: Rest Timing - duration: Minutes Timing - details: Abrupt onset, Now resolved Quality: Pressure Location: Substernal Radiation: Neck Improved by: Nitro Worsened by: Exertion Associated symptoms: Shortness of air Similar symptoms before: Diagnosis (NJ and angina and CHF) Recently seen: Not recently seen - Additional information Additional information: 72-year-old female with a history of congestive heart failure [place] and CVA, has developed acute chest pain radiating into her neck consistent with what she has had previously with NJ and angina. She states that she was laying on her couch got up to go into the bathroom she got short of breath and in the bathroom and developed the pain when she returned. She was not able to find her nitroglycerin she was given a single nitroglycerin in the ambulance and with that her pain resolved. She was not having chest pain prior to this. She does indicate that she spent some time out on a boat on Father's Day and she does not usually go out side much at all. Family is concerned about the possibility of dehydration. She also has been having an issue with her left leg swelling for about 6 months. This will come and go and it was swollen 2 days ago. The swelling has reduced. She denies any calf pain. Review of Systems Constitutional: denies: Fever Eyes: reports: Decreased vision Ears: denies: Ear pain Nose: denies: Rhinorrhea / runny nose, Congestion Throat: denies: Dental pain / toothache Cardiac: reports: Chest pain / pressure, Pedal edema. denies: Palpitations, Calf pain Respiratory: reports: Dyspnea. denies: Cough, Wheezing GI: denies: Abdominal Pain, Nausea, Vomiting : denies: Dysuria, Frequency Skin: denies: Rash Musculoskeletal: reports: Neck pain. denies: Back pain, Extremity pain Neurologic: denies: Generalized weakness, Focal weakness, Numbness PD PAST MEDICAL HISTORY - Past Medical History Cardiovascular: Hypertension, Coronary artery disease, [place], Murmur Respiratory: COPD Endocrine/Autoimmune: Type 2 diabetes GI: GERD : Renal insuffiency, Nocturia, Frequency Psych: Schizophrenia Musculoskeletal: Chronic back pain - Past Surgical History Past Surgical History: Yes /PHYSICIAN PRACTICE CONSULTANT: Hysterectomy, Oophrectomy Cardiovascular: CABG - Present Medications Home Medications: Ambulatory Orders Medication Instructions Recorded Confirmed Aspirin [Aspirin EC] 81 mg PO DAILY 02/17/14 04/13/18 Lisinopril 20 mg PO DAILY 05/23/15 04/13/18 Amlodipine Besylate 10 mg PO DAILY 09/14/15 04/13/18 Clopidogrel [Plavix] 75 mg PO DAILY 09/22/17 04/13/18 Isosorbide Mononitrate ER [Imdur] 30 mg PO DAILY 09/22/17 04/13/18 Metoprolol Succinate 100 mg PO DAILY 09/22/17 04/13/18 Ranitidine HCl [Heartburn Relief] 150 mg PO BID 09/22/17 04/13/18 Atorvastatin Calcium 20 mg PO QPM 04/13/18 04/13/18 Furosemide [Furosemide] 40 mg PO DAILY 04/13/18 04/13/18 glipiZIDE [Glipizide] 5 mg PO BID 04/13/18 04/13/18 - Allergies Allergies/Adverse Reactions: Allergies Allergy/AdvReac Type Severity Reaction Status Date / Time codeine Allergy Intermediate Rash Verified 04/13/18 11:20 - Social History Does the pt smoke?: No Smoking Status: Never smoker Does the pt drink ETOH?: No Does the pt have substance abuse?: No - Immunizations Immunizations are current?: Yes - POLST Patient has POLST: No PD ED PE NORMAL - Vitals Vital signs reviewed: Yes (tachypneic at rest and hypertensive) - General General: Alert and oriented X 3, No acute distress, Well developed/nourished - HEENT HEENT: Atraumatic, PERRL, EOMI - Neck Neck: Supple, no meningeal sign - Cardiac Cardiac: RRR, No murmur - Respiratory Respiratory: No respiratory distress, Other (bibasilar rales) - Abdomen Abdomen: Soft, Non tender - Back Back: No CVA TTP, No spinal TTP - Derm Derm: Normal color, Warm and dry, No rash - Extremities Extremities: No deformity, Other (trace edema to the left lower ext with an area of injury to the anterior calf that is now healed . There is no pain to the posterior calf. ) Results - Vitals Vitals: Vital Signs - 24 hr 04/13/18 04/13/18 04/13/18 11:15 11:47 14:14 Temperature 36.7 C Heart Rate 60 56 L 62 Respiratory 26 H 14 22 Rate Blood Pressure 150/82 H 156/64 H 153/59 H O2 Saturation 95 95 90 L 04/13/18 15:41 Temperature Heart Rate 55 L Respiratory 18 Rate Blood Pressure 153/59 H O2 Saturation 95 Oxygen O2 Source Room air - EKG (time done) 1118 Rate: Rate (enter#) (61) Rhythm: NSR QRS: LVH Ischemia: Q waves (inferior and anterior) Compare to prior EKG: Unchanged from prior EKG (09-22-17) Computer interpretation: Agree with computer - Labs Labs: Laboratory Tests 04/13/18 04/13/18 04/13/18 11:40 11:40 11:40 WBC 4.7 L RBC 3.94 L Hgb 12.2 Hct 38.2 MCV 96.8 MCH 31.0 MCHC 32.0 RDW 14.8 Plt Count 147 MPV 8.9 Neut # (Auto) 3.5 Lymph # (Auto) 0.6 L Mercer # (Auto) 0.4 Eos # (Auto) 0.1 Baso # (Auto) 0.0 Absolute Nucleated RBC 0.00 Nucleated RBC % 0.0 D-Dimer 351.6 H Sodium 136 Potassium 3.3 L Chloride 107 Carbon Dioxide 22 Anion Gap 7.0 BUN 48 H Creatinine 2.7 H Estimated GFR (MDRD) 17 L Glucose 188 H Calcium 8.7 Total Bilirubin 0.6 AST 64 H ALT 51 Alkaline Phosphatase 109 Troponin I B-Natriuretic Peptide Total Protein 6.5 L Albumin 3.5 Globulin 3.0 Albumin/Globulin Ratio 1.2 Lipase 49 Urine Color Urine Clarity Urine pH Ur Specific [place] Urine Protein Urine Glucose (UA) Urine Ketones Urine Occult Blood Urine Nitrite Urine Bilirubin Urine Urobilinogen Ur Leukocyte Esterase Urine RBC Urine WBC Urine WBC Clumps Ur Squamous Epith Cells Urine Bacteria Ur Microscopic Review Urine Culture Comments 04/13/18 04/13/18 04/13/18 11:40 11:40 12:51 WBC RBC Hgb Hct MCV MCH MCHC RDW Plt Count MPV Neut # (Auto) Lymph # (Auto) Mercer # (Auto) Eos # (Auto) Baso # (Auto) Absolute Nucleated RBC Nucleated RBC % D-Dimer Sodium Potassium Chloride Carbon Dioxide Anion Gap BUN Creatinine Estimated GFR (MDRD) Glucose Calcium Total Bilirubin AST ALT Alkaline Phosphatase Troponin I 0.06 B-Natriuretic Peptide 1289 H Total Protein Albumin Globulin Albumin/Globulin Ratio Lipase Urine Color YELLOW Urine Clarity CLEAR Urine pH 6.0 Ur Specific [place] 1.015 Urine Protein 100 H Urine Glucose (UA) NEGATIVE Urine Ketones NEGATIVE Urine Occult Blood TRACE-LYSE Urine Nitrite NEGATIVE Urine Bilirubin NEGATIVE Urine Urobilinogen 0.2 (NORMAL) Ur Leukocyte Esterase NEGATIVE Urine RBC 0-5 Urine WBC 4-5 Urine WBC Clumps PRESENT Ur Squamous Epith Cells FEW Squamous Urine Bacteria Rare Ur Microscopic Review INDICATED Urine Culture Comments NOT INDICATED 04/13/18 14:53 WBC RBC Hgb Hct MCV MCH MCHC RDW Plt Count MPV Neut # (Auto) Lymph # (Auto) Mercer # (Auto) Eos # (Auto) Baso # (Auto) Absolute Nucleated RBC Nucleated RBC % D-Dimer Sodium Potassium Chloride Carbon Dioxide Anion Gap BUN Creatinine Estimated GFR (MDRD) Glucose Calcium Total Bilirubin AST ALT Alkaline Phosphatase Troponin I 0.06 B-Natriuretic Peptide Total Protein Albumin Globulin Albumin/Globulin Ratio Lipase Urine Color Urine Clarity Urine pH Ur Specific [place] Urine Protein Urine Glucose (UA) Urine Ketones Urine Occult Blood Urine Nitrite Urine Bilirubin Urine Urobilinogen Ur Leukocyte Esterase Urine RBC Urine WBC Urine WBC Clumps Ur Squamous Epith Cells Urine Bacteria Ur Microscopic Review Urine Culture Comments - Rads (name of study) 2 veiw chest Radiology: Prelim report reviewed (Impression: 1. Increased bilateral infiltrates or edema greater with in the lower lung guajardo and left mildly greater than right. New very small right pleural effusion.), EMP read indepedently, See rad report duplex left le Radiology: Prelim report reviewed (Impression: No evidence for deep venous thrombosis left lower extremity.), EMP read indepedently, See rad report Procedures - Bedside sono Bedside sono by EMP: with the use of bedside ultrasound the heart is imaged and there is evidence of septal hypokinesis. - IVC sono (time) 1130 Bedside IVC sono: IVC measures (cm) (1.32), Dehydration (mild) 1400 Bedside IVC sono: IVC measures (cm) (1.54), IVC collapsed c insp (cm) (1.32), High CVP PD MEDICAL DECISION MAKING - ED course Complexity details: considered differential, d/w patient, d/w family ED course: 72-year-old female with history of CHF and CVA and [place] has developed some chest pain is been relieved with nitroglycerin. She is found on interrogation the inferior vena cava to have some mild dehydration. She does have a period of exposure 2 days ago with time out on the water in a boat. Today her ankles are skinny and she continues to have some dyspnea. Saline is begun at 500 mils an hour for 1 L. Electrocardiogram is without evidence of acute ischemia. She has infiltrate/edema on CXR and develops increased dyspnea after fluids and she is administered lasix 40mg IV. REview of the patient's medical record indicates she has poor LV function consistent with that seen on bedside. - Sepsis Event Vital Signs: Vital Signs - 24 hr 04/13/18 04/13/18 04/13/18 11:15 11:47 14:14 Temperature 36.7 C Heart Rate 60 56 L 62 Respiratory 26 H 14 22 Rate Blood Pressure 150/82 H 156/64 H 153/59 H O2 Saturation 95 95 90 L 04/13/18 15:41 Temperature Heart Rate 55 L Respiratory 18 Rate Blood Pressure 153/59 H O2 Saturation 95 Oxygen O2 Source Room air Departure - Departure Disposition: 66 [facility] DC/Xfer Clinical Impression: Angina pectoris Congestive heart failure Qualifiers: Heart failure type: systolic Heart failure chronicity: acute on chronic Qualified Code(s): I50.23 - Acute on chronic systolic (congestive) heart failure
[2018-04-13 11:48] LABS: BASOPHILS % (AUTO) 0.2 %; EOSINOPHILS # (AUTO) 0.1 10^3/uL (0.0-0.7); EOSINOPHILS % (AUTO) 3.2 %; HGB - HEMOGLOBIN 12.2 g/dL (12.0-16.0); LYMPHOCYTES # (AUTO) 0.6 10^3/uL (1.5-3.5); LYMPHOCYTES % (AUTO) 13.6 %; MEAN CORPUSCULAR VOLUME 96.8 fL (81.0-99.0); MEAN PLATELET VOLUME 8.9 fL (7.9-10.8); MONOCYTES # (AUTO) 0.4 10^3/uL (0.0-1.0); MONOCYTES % (AUTO) 8.1 %; NEUTROPHILS # (AUTO) 3.5 10^3/uL (1.5-6.6); NEUTROPHILS % (AUTO) 74.9 %; PLT - PLATELET COUNT 147 10^3/uL (130-450); RED BLOOD COUNT 3.94 10^6/uL (4.20-5.40); RED CELL DISTRIBUTION WIDTH 14.8 % (12.0-15.0); WHITE BLOOD COUNT 4.7 x10^3/uL (4.8-10.8)
[2018-04-13 12:01] LABS: ALBUMIN 3.5 g/dL (3.2-5.5); ALBUMIN/GLOBULIN RATIO 1.2 (1.0-2.2); BILIRUBIN,TOTAL 0.6 mg/dL (0.2-1.0); CALCIUM 8.7 mg/dL (8.5-10.3); CREATININE 2.7 mg/dL (0.4-1.0); TOTAL PROTEIN 6.5 g/dL (6.7-8.2)
--- NOTE | 2018-04-13 12:13 | XRAY Report ---
Procedure Date: 04/13/2018 Accession Number: [id number] / [id number] Procedure: XR - Chest 2 View X-Ray CPT Code: 75648 FULL RESULT: EXAM: CHEST RADIOGRAPHY EXAM DATE: 04/13/2018 12:01 PM. CLINICAL HISTORY: [place]. COMPARISON: 12/27/2016. TECHNIQUE: 2 views. FINDINGS: Lungs/Pleura: Interval increased bilateral streaky and interstitial opacities, greater within the lower lung guajardo an mildly greater in left retrocardiac. This could represent progressive infiltrate or edema. Evidence of a new very small right pleural effusion. No pneumothorax. Mediastinum: Heart and mediastinal contours are unremarkable. Median sternotomy changes redemonstrated. Other: None. IMPRESSION: 1. Increased bilateral infiltrates or edema, greater within the lower lung guajardo and left mildly greater than right. 2. New very small right pleural effusion. RADIA
[2018-04-13 12:58] LABS: BILIRUBIN,URINE NEGATIVE (NEGATIVE); GLUCOSE, URINE (UA) NEGATIVE (NEGATIVE); KETONES,URINE (UA) NEGATIVE (NEGATIVE); LEUKOCYTE ESTERASE, URINE NEGATIVE (NEGATIVE); NITRITE,URINE NEGATIVE (NEGATIVE); OCCULT BLOOD,URINE TRACE-LYSE (NEGATIVE); PROTEIN,URINE 100 mg/dL (NEGATIVE); UROBILINOGEN,URINE 0.2 (NORMAL) E.U./dL (NORMAL)
[2018-04-13 12:59] LABS: CLARITY,URINE CLEAR (CLEAR)
[2018-04-13 13:10] LABS: WBC CLUMPS,URINE PRESENT
[2018-04-13 13:11] LABS: BACTERIA,URINE Rare /HPF (None Seen); RBC,URINE 0-5 /HPF (0-5); SQUAMOUS EPITHELIAL CELL,UR FEW Squamous (<= Few)
[2018-04-13] MEDS ORDERED: FUROSEMIDE 40 MG/4 ML VIAL IVP STA (13:40)
--- NOTE | 2018-04-13 14:45 | Ultrasound Report ---
Procedure Date: 04/13/2018 Accession Number: [id number] / [id number] Procedure: US - Duplex Ext Veins Left CPT Code: FULL RESULT: EXAM: Duplex Ext Veins Left DATE: 04/13/2018 2:31 PM CLINICAL HISTORY: left leg swelling COMPARISON: None. TECHNIQUE: Real-time sonographic vascular imaging was performed by the receiving coordinator through the lower extremities utilizing both color-flow and Doppler spectral analysis. Multiple factory representative static images were saved for review. FINDINGS: Left: Common Femoral Vein (CFV): Normal. Superficial Femoral Vein (SFV) Prox: Normal. Superficial Femoral Vein (SFV) Mid: Normal. Superficial Femoral Vein: (SFV) Dist: Normal. Popliteal Vein: Normal. Posterior Tibial Veins: Normal. Peroneal Veins: Normal. Other: None. IMPRESSION: No evidence for deep venous thrombosis left lower extremity. RADIA
[2018-04-13] MEDS ORDERED: SODIUM CHLORIDE FLUSH 0.9% 10 ML SYRINGE IVP PRN (15:57)
[2018-04-13] MEDS ORDERED: IPRATROPIUM/ALBUTEROL 3 ML NEB INH STA (17:06)
[2018-04-13] MEDS ORDERED: TEMAZEPAM 15 MG CAPSULE PO PRN (17:08)
[2018-04-13] MEDS ORDERED: MORPHINE 2 MG/ML SYRINGE IVP PRN (17:08)
[2018-04-13] MEDS ORDERED: ONDANSETRON 4 MG/2 ML VIAL IVP PRN (17:08)
[2018-04-13] MEDS ORDERED: ACETAMINOPHEN 325 MG TABLET PO PRN (17:08)
[2018-04-13] MEDS ORDERED: NITROGLYCERIN SL 0.4 MG TABLET SL PRN (17:40)
[2018-04-13] MEDS: SODIUM CHLORIDE FLUSH 0.9% 10 ML SYRINGE IVP SCH (18:44)
[2018-04-13] MEDS: NITROGLYCERIN 2% PASTE TOP SCH (18:49)
[2018-04-13] MEDS ORDERED: ALBUTEROL NEB 2.5 MG/3 ML INH PRN (19:39)
[2018-04-13] MEDS ORDERED: glipiZIDE 5 MG TABLET PO SCH (21:00)
[2018-04-13] MEDS: INSULIN ASPART 300 UNIT/3 ML PEN SUBQ SCH (22:08)
[2018-04-13] MEDS: FAMOTIDINE 20 MG TABLET PO SCH (22:10)
[2018-04-13] MEDS: ATORVASTATIN 10 MG TABLET PO SCH (22:10)
--- NOTE | 2018-04-14 00:23 | HISTORY & PHYSICAL EXAMINATION ---
DATE OF SERVICE: 04/13/2018 Physician: Sara Taylor MD HISTORY OF PRESENT ILLNESS: This is a 72-year-old female with a history of stroke, congestive heart failure, diabetes mellitus, hyperlipidemia, hypertension. The patient presented after having worsening shortness of breath today when she awoke. The patient's history goes back to several months ago when she was treated for CHF with Lasix and the following day, had a significant stroke with left-sided weakness and gaze preference. The son reports this portion of the story and indicates that he felt that she was over diuresed, that her blood was "too thick" and this is what gave her a stroke. The patient had qualified for tPA treatment of the CVA, which she received and she was transferred to a hospital in [place]. She stayed there for nearly a week and started to have rehab and then was transferred to a correction facility and had complete recovery of her function, per the son. In that recovery period, she started to develop seizures. She was put on Keppra. The Keppra gave her psychosis and hallucinations. It was then stopped, but she still continues to have the hallucinations but no more agitation. She is apparently not on any other anticonvulsant now. Several days ago, she spent the day on her son's boat and "soaked her feet in the [place] all day." She did this to decrease leg edema that was accumulating. The edema did decrease, but she was very tired because she "overdid it." The following morning, this morning, she woke up very short of breath. She also had angina and could not find her sublingual nitroglycerin. In an ambulance she received sl NTG times 1 and had relief. She presented to the emergency room. The family told the emergency room doctor that she "overdid it" and they were worried that she was dehydrated. A scan was done of her inferior vena cava, which did show possible slight volume depletion and she started to get a saline bolus. After approximately 500 mL, she had significant shortness of breath with orthopnea and required diuresis for improvement. Her chest x-ray has returned showing pulmonary edema. 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 MEDICATIONS 1. Glipizide 5 mg b.i.d. 2. Lasix 40 mg daily. 3. Toprol 100 mg daily. 4. Lipitor 20 mg at bedtime. 5. Ranitidine 150 mg b.i.d. 6. Lisinopril 20 mg daily. 7. Imdur 30 mg daily. 8. Plavix 75 mg daily. 9. Baby aspirin daily. 10. Amlodipine 10 mg daily. ALLERGIES: CODEINE. FAMILY HISTORY: No inherited diseases. SOCIAL HISTORY: The patient is an ex-smoker, drinks no alcohol or use illicit drugs. The patient lives with her son. REVIEW OF SYSTEMS: A comprehensive review of systems was performed and the pertinent positives are in the HPI, the rest are negative. PHYSICAL EXAMINATION GENERAL: Elderly female of descent who is sitting upright in bed and is in no distress. She is talking and laughing. VITAL SIGNS: Blood pressure is 126/67, pulse of 58 in sinus rhythm, afebrile, nasal cannula of 1 liter gives her a saturation of 92%. Her respiratory rate is 18- 20. HEENT: Unremarkable, except she has mild left eyelid ptosis. NECK: Without JVD or carotid bruits. CHEST: Diminished breath sounds on the right side. Left is clear. HEART: Sounds are distant, normal. No audible murmur. ABDOMEN: Soft, obese, nontender. No organomegaly. EXTREMITIES: Show no clubbing, cyanosis or edema. NEUROLOGIC: Intact with equal strength on both sides and the left eye ptosis is seen. LABORATORY DATA Sodium 136, potassium 3.3, BUN 48, creatinine 2.7, AST 64, ALT 51. Troponins are flat, but elevated at 0.06 twice. BNP 1289. INR was not done. White blood count 4.7 with a normal differential, hemoglobin 12.2, platelet count normal at 147. Urinalysis showed no ketones, no nitrites and no leukocyte esterase and rare bacteria. Chest x-ray: CHF. EKG: Normal sinus rhythm, LVH voltage, diffusely flat T waves. There is no old EKG available for comparison. IMPRESSION 1. Congestive heart failure. 2. Unstable angina. 3. Recent stroke, with recovery. 4. Chronic kidney disease., stage 4. 5. Hypertension. 6. Diabetes. PLAN: Stop the patient's glimepiride as this dose is excessive for a patient with stage IV renal failure. Begin carb-controlled diet and sliding scale insulin coverage while she is here. Begin gentle diuresis with IV Lasix. Follow her I's and O's, daily weights, electrolytes, BUN, creatinine and magnesium. Obtain an Echo to establish LV contractility. Cycle troponins, essentially these have already been completed showing no AR. Continue her medications for antiplatelet effect and blood pressure. CODE STATUS: FULL CODE. DEEP VEIN THROMBOSIS PROPHYLAXIS: SCDs. ATTESTATION: The patient is expected to be discharged or transferred to another facility within 96 hours: Yes. TD: 04/13/2018 21:38 [facility]
[2018-04-14] MEDS: SODIUM CHLORIDE FLUSH 0.9% 10 ML SYRINGE IVP SCH ×4 (00:25→23:29)
[2018-04-14] MEDS: NITROGLYCERIN 2% PASTE TOP SCH ×3 (02:45→16:42)
[2018-04-14] MEDS ORDERED: WITCH HAZEL/GLYCERIN 1 EACH MED..PAD TOP PRN (05:00)
[2018-04-14 05:56] LABS: HB2 TOTAL 13.5 g/dL; HEMOGLOBIN A1C 0.51 g/dL; HEMOGLOBIN A1C % 5.6 % (4.6-6.2)
[2018-04-14 06:50] LABS: HGB - HEMOGLOBIN 12.6 g/dL (12.0-16.0); MEAN CORPUSCULAR HGB CONC 32.9 g/dL (32.0-36.0); MEAN CORPUSCULAR VOLUME 94.3 fL (81.0-99.0); MEAN PLATELET VOLUME 9.5 fL (7.9-10.8); RED BLOOD COUNT 4.06 10^6/uL (4.20-5.40); RED CELL DISTRIBUTION WIDTH 14.4 % (12.0-15.0)
[2018-04-14 06:52] LABS: CALCIUM 9.2 mg/dL (8.5-10.3); CREATININE 2.5 mg/dL (0.4-1.0)
[2018-04-14] MEDS ORDERED: FUROSEMIDE 20 MG TABLET PO SCH (07:00)
[2018-04-14] MEDS ORDERED: POTASSIUM CHLORIDE 10 MEQ CAPSULE PO SCH ×2 (07:00→07:48)
[2018-04-14] MEDS: INSULIN ASPART 300 UNIT/3 ML PEN SUBQ SCH (07:42)
[2018-04-14] MEDS: FUROSEMIDE 40 MG/4 ML VIAL IVP SCH ×2 (09:25→13:54)
[2018-04-14] MEDS: amLODIPine 5 MG TABLET PO SCH (09:26)
[2018-04-14] MEDS: FAMOTIDINE 20 MG TABLET PO SCH ×2 (09:26→20:43)
[2018-04-14] MEDS: POTASSIUM CHLORIDE 20 MEQ TABLET PO SCH (09:26)
[2018-04-14] MEDS: LISINOPRIL 20 MG TABLET PO SCH (09:26)
[2018-04-14] MEDS: POLYETHYLENE GLYCOL 3350 17 GM PACKET PO SCH (09:26)
[2018-04-14] MEDS: METOPROLOL SUCCINATE 50 MG TABLET PO SCH (09:26)
[2018-04-14] MEDS: ASPIRIN EC 81 MG TABLET PO SCH (09:26)
[2018-04-14] MEDS: CLOPIDOGREL 75 MG TABLET PO SCH (09:26)
[2018-04-14] MEDS: ENOXAPARIN 30 MG/0.3 ML SYRINGE SUBQ SCH (10:17)
--- NOTE | 2018-04-14 15:07 | PROVIDER PROGRESS NOTE ---
Assessment/Plan - Problem List (1) Acute systolic CHF (congestive heart failure), NYHA class 2 Assessment/Plan: Patient had recent hospitalization for CHF exacerbation at [facility] and was on Lasix at home. The patient states that she woke up yesterday with bilateral lower extremity swelling and was short of breath at rest and with minimal exertion. On presentation to the emergency department the patient appeared to have congestive heart failure with crackles in her lungs, JVD and bilateral lower extremity swelling. Patient's chest x-ray showed congestive heart failure and her BNP was elevated. Patient was given IV Lasix yesterday with minimal urine output and continues to have lower extremity edema as well as crackles on examination. Patient's BNP also worse this morning at 2209 IV Lasix increased to 80 mg twice daily Strict I's and O's Daily BNP Preliminary echocardiogram shows ejection fraction of 30-35% with grade 3 diastolic dysfunction and regional wall motion abnormalities with akinesis of the basal inferior, mid inferior and mid posterior wall. Continue lisinopril and metoprolol Blow Torch Burner closely (2) Unstable angina Assessment/Plan: Patient presented with unstable angina but had negative troponins and negative EKG Patient has Nitropaste placed on chest wall Nitroglycerin sublingual as needed Monitor on telemetry (3) History of CVA (cerebrovascular accident) Assessment/Plan: On optimal medical treatment with aspirin and Lipitor Stroke occurred at [facility] a few months ago and patient had to be flown down to [place] after receiving TPA she does not appear to have any focal residual deficits. (4) CKD (chronic kidney disease) stage 4, GFR 15-29 ml/min Assessment/Plan: Patient has history of CKD stage IV and presented with a creatinine of 2.7. The patient's creatinine did improve slightly down to 2.5 with diuresis. Patient's baseline creatinine appears to be around 1.8-2 likely patient has acute on chronic renal failure secondary to cardiorenal syndrome and we expect this will improve with IV Lasix. (5) Hypertension Qualifiers: Hypertension type: essential hypertension Qualified Code(s): I10 - Essential (primary) hypertension Assessment/Plan: Patient has history of hypertension blood pressure appears to be controlled Continue home antihypertensives Stable (6) Diabetes Qualifiers: Diabetes mellitus type: type 2 Diabetes mellitus complication status: with kidney complications Diabetes mellitus complication detail: with chronic kidney disease Chronic kidney disease stage: stage 4 (severe) Assessment/Plan: Patient has history of diabetes and is on glipizide at home. Patient's hemoglobin A1c is only 5.6. Patient refuses to be on sliding scale insulin We will place her on her home dose of glipizide and monitor blood glucose before meals at bedtime - Current Meds Current Meds: Current Medications Generic Name Dose Route Start Last Admin Trade Name Freq PRN Reason Stop Dose Admin Amlodipine Besylate 10 mg 04/14/18 09:00 04/14/18 09:26 Norvasc PO 10 mg DAILY MARIAN Administration Aspirin 81 mg 04/14/18 09:00 04/14/18 09:26 Ecotrin PO 81 mg DAILY MARIAN Administration Atorvastatin Calcium 20 mg 04/13/18 21:00 04/13/18 22:10 Lipitor PO 20 mg QPM MARIAN Administration Clopidogrel Bisulfate 75 mg 04/14/18 09:00 04/14/18 09:26 Plavix PO 75 mg DAILY MARIAN Administration Enoxaparin Sodium 30 mg 04/14/18 09:00 04/14/18 10:17 Lovenox SUBQ 30 mg DAILY MARIAN Administration Famotidine 10 mg 04/13/18 21:00 04/14/18 09:26 Pepcid PO 10 mg BID MARIAN Administration Furosemide 80 mg 04/14/18 08:00 04/14/18 13:54 Lasix Inj 40 Mg Vial IVP 80 mg BIDDIURETIC MARIAN Administration Lisinopril 20 mg 04/14/18 09:00 04/14/18 09:26 Zestril PO 20 mg DAILY MARIAN Administration Metoprolol Succinate 100 mg 04/14/18 09:00 04/14/18 09:26 Toprol Xl PO 100 mg DAILY MARIAN Administration Nitroglycerin 0.75 inch 04/13/18 17:40 04/14/18 09:27 Nitro-Bid (Pkt) TOP 0.75 inch Q8H MARIAN Administration Polyethylene Glycol 17 gm 04/14/18 09:00 04/14/18 09:26 Miralax PO Not Given DAILY MARIAN Potassium Chloride 40 meq 04/14/18 07:54 04/14/18 09:26 K-Dur PO 40 meq DAILYWM MARIAN Administration Sodium Chloride 10 ml 04/13/18 15:57 04/14/18 13:54 Normal Saline Flush 0.9% IVP 10 ml PRN PRN Administration NEEDED PER PROVIDER ORDERS Sodium Chloride 10 ml 04/13/18 17:00 04/14/18 09:27 Normal Saline Flush 0.9% IVP 10 ml 0100,0900,1700 MARIAN Administration Witch Yakelin/Glycerin 1 each 04/14/18 05:00 04/14/18 10:17 Tucks TOP 1 each PRN PRN Administration ITCHING - Lab Result Lab results reviewed: Yes Fish Bone Diagrams: 04/14/18 04:55 04/14/18 04:55 - EKG Results EKG Interpreted Independently: Yes EKG Comparison: Changed from prior EKG - Diagnostic Imaging Results Diagnostic Imaging Results: Final report reviewed - Additional Planning Condition/Complexity: Guarded My Orders: My Active Orders 04/14/18 07:54 Potassium Chloride [K-Dur] 40 meq PO DAILYWM 04/14/18 08:00 FUROSEMIDE INJ 40mg VIAL [LASIX INJ 40 mg VIAL] 80 mg IVP BIDDIURETIC Plan Discussed with:: Patient, Family Time Spent: 31-60 minutes Subjective - Subjective Patient Reports: Shortness of Breath (with exertion), Other (Sleepy this am as she did not sleep at all last night) Nursing Reports: No Complaints Objective Vital Signs: Vital Signs - 24 hr 04/13/18 04/13/18 04/13/18 16:30 19:25 19:37 Temperature 36.6 C 36.7 C Heart Rate 58 L Heart Rate [ 60 58 L Brachial] Respiratory 18 18 20 Rate Blood Pressure 126/73 126/67 [Right Brachial artery] O2 Saturation 92 04/13/18 04/13/18 04/14/18 21:15 23:58 04:45 Temperature 36.6 C 36.7 C 36.5 C Heart Rate Heart Rate [ 60 59 L 65 Brachial] Respiratory 18 18 18 Rate Blood Pressure 154/60 H 149/64 H 155/64 H [Right Brachial artery] O2 Saturation 93 97 96 04/14/18 04/14/18 07:47 13:00 Temperature 37.0 C 37.3 C Heart Rate Heart Rate [ 59 L 57 L Brachial] Respiratory 18 16 Rate Blood Pressure 146/59 H 125/77 [Right Brachial artery] O2 Saturation 94 96 Oxygen O2 Source Room air I&O (Last 24 Hrs): Intake and Output Totals x24h 04/12/18 04/13/18 04/14/18 23:59 23:59 23:59 Intake Total 740 500 Balance 740 500 General: Alert, Oriented x3, Cooperative, Mild distress (respiratory) HEENT: Atraumatic, PERRLA, EOMI, Mucous membr. moist/pink Neck: Supple, No thyromegaly, +2 carotid pulse wo bruit, No LAD, Other ( elevated JVP) Lymphatic: no adenopathy Neuro: Alert, Non Focal, CN 2-12 Grossly Intact, Oriented Times 3 Cardiovascular: Regular rate, Normal S1, Normal S2, No murmurs Respiratory: Chest non-tender, Rales (Bibasilar) Abdomen: Normal bowel sounds, Soft, No tenderness, No hepatospenomegaly, No masses Extremities: No clubbing, No cyanosis, Normal pulses, Other (Mild ankle edemia) Skin: No rashes, No breakdown - Results Results: Laboratory Results WBC 5.0 x10^3/uL (4.8-10.8) 04/14/18 04:55 RBC 4.06 10^6/uL (4.20-5.40) L 04/14/18 04:55 Hgb 12.6 g/dL (12.0-16.0) 04/14/18 04:55 Hct 38.3 % (37.0-47.0) 04/14/18 04:55 MCV 94.3 fL (81.0-99.0) 04/14/18 04:55 MCH 31.0 pg (27.0-31.0) 04/14/18 04:55 MCHC 32.9 g/dL (32.0-36.0) 04/14/18 04:55 RDW 14.4 % (12.0-15.0) 04/14/18 04:55 Plt Count 162 10^3/uL (130-450) 04/14/18 04:55 MPV 9.5 fL (7.9-10.8) 04/14/18 04:55 Neut # (Auto) 3.5 10^3/uL (1.5-6.6) 04/13/18 11:40 Lymph # (Auto) 0.6 10^3/uL (1.5-3.5) L 04/13/18 11:40 [place]anan # (Auto) 0.4 10^3/uL (0.0-1.0) 04/13/18 11:40 Eos # (Auto) 0.1 10^3/uL (0.0-0.7) 04/13/18 11:40 Baso # (Auto) 0.0 10^3/uL (0.0-0.1) 04/13/18 11:40 Absolute Nucleated RBC 0.00 x10^3/uL 04/13/18 11:40 Nucleated RBC % 0.0 /100WBC 04/13/18 11:40 D-Dimer 351.6 ng/mL (200.0-255.0) H 04/13/18 11:40 Sodium 141 mmol/L (135-145) 04/14/18 04:55 Potassium 3.3 mmol/L (3.5-5.0) L 04/14/18 04:55 Chloride 107 mmol/L (101-111) 04/14/18 04:55 Carbon Dioxide 23 mmol/L (21-32) 04/14/18 04:55 Anion Gap 11.0 (6-13) 04/14/18 04:55 BUN 39 mg/dL (6-20) H 04/14/18 04:55 Creatinine 2.5 mg/dL (0.4-1.0) H 04/14/18 04:55 Estimated GFR (MDRD) 19 (>89) L 04/14/18 04:55 Glucose 115 mg/dL (70-100) H 04/14/18 04:55 Glycated Hemoglobin 5.6 % (4.6-6.2) 04/14/18 04:55 Estim Average Glucose 114 (70-100) H 04/14/18 04:55 Calcium 9.2 mg/dL (8.5-10.3) 04/14/18 04:55 Total Bilirubin 0.6 mg/dL (0.2-1.0) 04/13/18 11:40 AST 64 IU/L (10-42) H 04/13/18 11:40 ALT 51 IU/L (10-60) 04/13/18 11:40 Alkaline Phosphatase 109 IU/L (42-121) 04/13/18 11:40 Troponin I 0.06 ng/mL (<0.49) 04/13/18 14:53 B-Natriuretic Peptide 2209 pg/mL (5-100) H 04/14/18 04:55 Total Protein 6.5 g/dL (6.7-8.2) L 04/13/18 11:40 Albumin 3.5 g/dL (3.2-5.5) 04/13/18 11:40 Globulin 3.0 g/dL (2.1-4.2) 04/13/18 11:40 Albumin/Globulin Ratio 1.2 (1.0-2.2) 04/13/18 11:40 Lipase 49 U/L (22-51) 04/13/18 11:40 Urine Color YELLOW 04/13/18 12:51 Urine Clarity CLEAR (CLEAR) 04/13/18 12:51 Urine pH 6.0 PH (5.0-7.5) 04/13/18 12:51 Ur Specific Winston 1.015 (1.002-1.030) 04/13/18 12:51 Urine Protein 100 mg/dL (NEGATIVE) H 04/13/18 12:51 Urine Glucose (UA) NEGATIVE mg/dL (NEGATIVE) 04/13/18 12:51 Urine Ketones NEGATIVE mg/dL (NEGATIVE) 04/13/18 12:51 Urine Occult Blood TRACE-LYSE (NEGATIVE) 04/13/18 12:51 Urine Nitrite NEGATIVE (NEGATIVE) 04/13/18 12:51 Urine Bilirubin NEGATIVE (NEGATIVE) 04/13/18 12:51 Urine Urobilinogen 0.2 (NORMAL) E.U./dL (NORMAL) 04/13/18 12:51 Ur Leukocyte Esterase NEGATIVE (NEGATIVE) 04/13/18 12:51 Urine RBC 0-5 /HPF (0-5) 04/13/18 12:51 Urine WBC 4-5 /HPF (0-5) 04/13/18 12:51 Urine WBC Clumps PRESENT 04/13/18 12:51 Ur Squamous Epith Cells FEW Squamous (<= Few) 04/13/18 12:51 Urine Bacteria Rare /HPF (None Seen) 04/13/18 12:51 Ur Microscopic Review INDICATED 04/13/18 12:51 Urine Culture Comments NOT INDICATED 04/13/18 12:51 - Procedures Procedures: Procedures ENDOSC POLYPECTOMY OF LG INTEST (02/17/14) ABX Reporting Has patient been on IV antibiotics over the past 48 hours?: No Current Medications - Current Medications Current Medications: Active Medications Generic Name Dose Route Start Last Admin Trade Name Freq PRN Reason Stop Dose Admin Acetaminophen 650 mg 04/13/18 17:08 Tylenol PO Q4HR PRN Pain or Fever > 38C (100.4F) Albuterol 2.5 mg 04/13/18 19:39 INH RTQ4H PRN Wheezing Amlodipine Besylate 10 mg 04/14/18 09:00 04/14/18 09:26 Norvasc PO 10 mg DAILY MARIAN Administration Aspirin 81 mg 04/14/18 09:00 04/14/18 09:26 Ecotrin PO 81 mg DAILY MARIAN Administration Atorvastatin Calcium 20 mg 04/13/18 21:00 04/13/18 22:10 Lipitor PO 20 mg QPM MARIAN Administration Clopidogrel Bisulfate 75 mg 04/14/18 09:00 04/14/18 09:26 Plavix PO 75 mg DAILY MARIAN Administration Enoxaparin Sodium 30 mg 04/14/18 09:00 04/14/18 10:17 Lovenox SUBQ 30 mg DAILY MARIAN Administration Famotidine 10 mg 04/13/18 21:00 04/14/18 09:26 Pepcid PO 10 mg BID MARIAN Administration Furosemide 80 mg 04/14/18 08:00 04/14/18 13:54 Lasix Inj 40 Mg Vial IVP 80 mg BIDDIURETIC MARIAN Administration Lisinopril 20 mg 04/14/18 09:00 04/14/18 09:26 Zestril PO 20 mg DAILY MARIAN Administration Metoprolol Succinate 100 mg 04/14/18 09:00 04/14/18 09:26 Toprol Xl PO 100 mg DAILY MARIAN Administration Morphine Sulfate 2 mg 04/13/18 17:08 Morphine IVP Q2H PRN Dyspnea Nitroglycerin 0.75 inch 04/13/18 17:40 04/14/18 09:27 Nitro-Bid (Pkt) TOP 0.75 inch Q8H MARIAN Administration Nitroglycerin 0.4 mg 04/13/18 17:40 Nitrostat SL Q5MIN PRN Chest Pain Ondansetron HCl 4 mg 04/13/18 17:08 Zofran Inj IVP Q6HR PRN Nausea / Vomiting Polyethylene Glycol 17 gm 04/14/18 09:00 04/14/18 09:26 Miralax PO Not Given DAILY MARIAN Potassium Chloride 40 meq 04/14/18 07:54 04/14/18 09:26 K-Dur PO 40 meq DAILYWM MARIAN Administration Sodium Chloride 10 ml 04/13/18 15:57 04/14/18 13:54 Normal Saline Flush 0.9% IVP 10 ml PRN PRN Administration NEEDED PER PROVIDER ORDERS Sodium Chloride 10 ml 04/13/18 17:00 04/14/18 09:27 Normal Saline Flush 0.9% IVP 10 ml 0100,0900,1700 MARIAN Administration Temazepam 15 mg 04/13/18 17:08 Restoril PO QPM PRN Insomnia Witch Yakelin/Glycerin 1 each 04/14/18 05:00 04/14/18 10:17 Tucks TOP 1 each PRN PRN Administration ITCHING Aspirin [Aspirin EC] 81 mg PO DAILY 02/17/14 Lisinopril 20 mg PO DAILY 05/23/15 Amlodipine Besylate 10 mg PO DAILY 09/14/15 Clopidogrel [Plavix] 75 mg PO DAILY 09/22/17 Isosorbide Mononitrate ER [Imdur] 30 mg PO DAILY 09/22/17 Metoprolol Succinate 100 mg PO DAILY 09/22/17 Ranitidine HCl [Heartburn Relief] 150 mg PO BID 09/22/17 Atorvastatin Calcium 20 mg PO QPM 04/13/18 Furosemide [Furosemide] 40 mg PO DAILY 04/13/18 glipiZIDE [Glipizide] 5 mg PO BID 04/13/18
[2018-04-14] MEDS: ATORVASTATIN 10 MG TABLET PO SCH (20:43)
[2018-04-15] MEDS: NITROGLYCERIN 2% PASTE TOP SCH ×2 (01:52→08:15)
[2018-04-15 06:27] LABS: MEAN CORPUSCULAR HEMOGLOBIN 31.2 pg (27.0-31.0); MEAN CORPUSCULAR HGB CONC 33.2 g/dL (32.0-36.0); MEAN CORPUSCULAR VOLUME 93.9 fL (81.0-99.0); MEAN PLATELET VOLUME 8.4 fL (7.9-10.8); RED BLOOD COUNT 3.85 10^6/uL (4.20-5.40); RED CELL DISTRIBUTION WIDTH 14.4 % (12.0-15.0); WHITE BLOOD COUNT 3.4 x10^3/uL (4.8-10.8)
[2018-04-15] MEDS: FUROSEMIDE 40 MG/4 ML VIAL IVP SCH (06:30)
[2018-04-15 06:40] LABS: CALCIUM 8.9 mg/dL (8.5-10.3); CREATININE 2.7 mg/dL (0.4-1.0)
--- NOTE | 2018-04-15 08:08 | XRAY Report ---
Procedure Date: 04/15/2018 Accession Number: [id number] / [id number] Procedure: XR - Chest 1 View X-Ray CPT Code: 19483 FULL RESULT: EXAM: CHEST RADIOGRAPHY EXAM DATE: 04/15/2018 07:42 AM. CLINICAL HISTORY: CHF vs infiltrate. COMPARISON: 04/13/2018. TECHNIQUE: 1 view. FINDINGS: Lungs/Pleura: Improved edema. There may be a small right pleural effusion. No pneumothorax. No focal consolidation. Mediastinum: Cardiomegaly. Aortic tortuosity. Aortic atherosclerosis. Other: Changes again seen from median sternotomy. IMPRESSION: 1. Improved edema. RADIA
[2018-04-15] MEDS: FAMOTIDINE 20 MG TABLET PO SCH (08:10)
[2018-04-15] MEDS: ASPIRIN EC 81 MG TABLET PO SCH (08:11)
[2018-04-15] MEDS: POTASSIUM CHLORIDE 20 MEQ TABLET PO SCH (08:11)
[2018-04-15] MEDS: LISINOPRIL 20 MG TABLET PO SCH (08:11)
[2018-04-15] MEDS: SODIUM CHLORIDE FLUSH 0.9% 10 ML SYRINGE IVP SCH (08:11)
[2018-04-15] MEDS: CLOPIDOGREL 75 MG TABLET PO SCH (08:11)
[2018-04-15] MEDS: amLODIPine 5 MG TABLET PO SCH (08:11)
[2018-04-15] MEDS: POLYETHYLENE GLYCOL 3350 17 GM PACKET PO SCH (08:11)
[2018-04-15] MEDS: METOPROLOL SUCCINATE 50 MG TABLET PO SCH (08:11)
[2018-04-15] MEDS: ENOXAPARIN 30 MG/0.3 ML SYRINGE SUBQ SCH (08:13)
--- NOTE | 2018-04-15 11:58 | Discharge Plan ---
Discharge Plan Disposition: Home, Self Care Condition: Fair Prescriptions: Nitroglycerin [Nitrostat] 0.4 mg SL Q5MIN PRN #30 tablet PRN Reason: Chest Pain Furosemide 40 mg PO DAILY #30 tablet Potassium Chloride [K-Dur] 20 meq PO DAILYWM #30 tablet Diet: Low Sodium Activity Restrictions: Activity as Tolerated Shower Restrictions: No Driving Restrictions: No Weight Bearing: Full Weight Additional Instructions or Follow Up instructions: You presented to the emergency department with shortness of breath and swelling in your legs. You were found to have a congestive heart failure exacerbation. Your echocardiogram showed that you have an ejection fraction of 30-35% which tells us that your heart is pumping weaker than normal. You received a water pill through IV while you were here in the hospital and it seems to have taking care of your difficulty breathing as well as the swelling in your legs. He will be continued on a water pill that he will take orally because Lasix. I have given you a prescription for Lasix that you will take 40 mg in the morning. I want you to check your weight on the scale every day and write it down. If you go up by more than 2-3 pounds in a day I would like you to take an extra dose of Lasix in the afternoon. If your weight continues to go up you need to call your primary care physician for further advice. I would like you to follow-up with your primary care physician in the next week. Also need to follow-up with a adult secondary education instructor for further management of your congestive heart failure. Currently you are on optimal medication for your congestive heart failure with metoprolol, lisinopril and Lasix. You should continue to take these medications daily. Please limit your salt intake to less than 2 g. And limit your fluid intake to no more than 2-1/2 L a day. I have also given you a prescription for nitroglycerin that you can take as needed if you have chest pain. Please take it easy for the next week and then resume your normal activities as tolerated over the next 2 weeks. I have referred you to cardiac rehab and CHF classes. [facility]-Up Care: [facility] No Smoking: If you smoke, Please STOP! Call for help. Follow-up with: JOSE YOON [Primary Care Provider] -
[2018-04-15 12:08] VITALS: BP 118/99
--- NOTE | 2018-04-15 13:33 | Discharge Plan ---
Discharge Plan Disposition: Home, Self Care Condition: Fair Prescriptions: Nitroglycerin [Nitrostat] 0.4 mg SL Q5MIN PRN #30 tablet PRN Reason: Chest Pain Furosemide 40 mg PO DAILY #30 tablet Potassium Chloride [K-Dur] 20 meq PO DAILYWM #30 tablet Activity Restrictions: Activity as Tolerated Shower Restrictions: No Driving Restrictions: No Weight Bearing: Full Weight Additional Instructions or Follow Up instructions: You presented to the emergency department with shortness of breath and swelling in your legs. You were found to have a congestive heart failure exacerbation. Your echocardiogram showed that you have an ejection fraction of 30-35% which tells us that your heart is pumping weaker than normal. You received a water pill through IV while you were here in the hospital and it seems to have taking care of your difficulty breathing as well as the swelling in your legs. He will be continued on a water pill that he will take orally because Lasix. I have given you a prescription for Lasix that you will take 40 mg in the morning. I want you to check your weight on the scale every day and write it down. If you go up by more than 2-3 pounds in a day I would like you to take an extra dose of Lasix in the afternoon. If your weight continues to go up you need to call your primary care physician for further advice. I would like you to follow-up with your primary care physician in the next week. Also need to follow-up with a round kiln drawer for further management of your congestive heart failure. Currently you are on optimal medication for your congestive heart failure with metoprolol, lisinopril and Lasix. You should continue to take these medications daily. Please limit your salt intake to less than 2 g. And limit your fluid intake to no more than 2-1/2 L a day. I have also given you a prescription for nitroglycerin that you can take as needed if you have chest pain. Please take it easy for the next week and then resume your normal activities as tolerated over the next 2 weeks. I have referred you to cardiac rehab and CHF classes. No Smoking: If you smoke, Please STOP! Call for help. Follow-up with: JOSE YOON [Primary Care Provider] -
--- NOTE | 2018-04-15 13:39 | DISCHARGE SUMMARY ---
Discharge Summary Admit Date: 04/13/18 Discharge Date: 04/15/18 Discharging Provider: Bhavesh Traylor MD Primary Care Provider: Elyse Flores MD Code Status: Attempt Resuscitation Condition at Discharge: Fair Discharge Disposition: 01 Home, Self Care - DIAGNOSES Admission Diagnoses: 1. Congestive heart failure 2. Stable angina 3. Recent stroke, with recovery 4. Chronic kidney disease, stage IV 5. Hypertension 6. Diabetes Discharge Diagnoses with Status of Each Condition: 1. Acute systolic CHF, NYHA class II 2. Unstable angina 3. History of cerebrovascular accident 4. Chronic kidney disease stage IV 5. Hypertension 6. Diabetes type 2 with kidney complications, with chronic kidney disease stage IV - HPI History of Present Illness: Patient is a 72-year-old female with a past medical history significant for CVA, congestive heart failure, diabetes mellitus, hyperlipidemia , hypertension. The patient presented after having worsening shortness of breath when she woke up this morning. The patient's history goes back to several months ago when she was treated for CHF with Lasix and the following day, had a significant stroke with left-sided weakness and gaze deviation. The son reports this portion of the story and indicates that he felt that she was over diuresed, that her blood was too thick and this is what gave her the stroke. Patient had qualified for TPA treatment of the CVA, which she received and was transferred to a hospital in [place]. After transfer she was treated with what appears to be thrombectomy and was hospitalized therefore over 1 week. In that recovery period, she started to develop seizures. She was put on Keppra. The Keppra gave her psychosis and hallucinations. It was stopped, but she still continues to have hallucinations but no more agitation. She is apparently not on any other anticonvulsants now. Several days ago, she spent the day on her son's boat and soaked her feet in the leg all day. She did this to decrease leg edema that was accumulating. The edema did decrease, but she was very tired because she overdid it. The following morning, this morning, she woke up very short of breath. She also had angina and could not find her sublingual nitroglycerin. In an ambulance she received sublingual nitroglycerin 1 and had relief. She presented to the emergency department. The family told the emergency room doctor that she overdid it and they worried that she was dehydrated. A scan was done of her inferior vena cava which did show possible slight volume depletion and she started to get saline bolus. After approximately 500 mL she had significant shortness of breath and orthopnea and required diuresis for improvement. Her chest x-ray returned showing pulmonary edema. The patient was admitted to the hospital for a CHF exacerbation. - HOSPITAL COURSE Hospital Course: During the hospitalization the patient received IV Lasix 80 mg twice daily and diuresed very well. She had decreased leg edema and improved shortness of breath. She improved to the point that she was able to walk back and forth 10- 20 feet in her room without feeling significantly short of breath. The patient had a BNP that was as high as 2209 and had improved to 1043 by the time of discharge. The patient was not hypoxic. She felt significantly better at the time of discharge. The patient underwent an echocardiogram while she was hospitalized which showed an ejection fraction of 30-35% and moderate mitral regurgitation. The patient was continued on metoprolol and lisinopril during the hospitalization. At discharge the patient was discharged home on Lasix 40 mg and advised to check her weight daily. She was advised to increase her dose of Lasix to twice a day if her weight increases by more than 2-3 pounds a day. She was also given a referral for CHF education and for cardiac rehab. She will follow-up with her primary care physician and was also advised to make an appointment with her boat engines installer for further management of her congestive heart failure. The patient was advised to limit her fluid and salt intake. She was discharged home in stable condition. - ALLERGIES Allergies/Adverse Reactions: Allergies Allergy/AdvReac Type Severity Reaction Status Date / Time codeine Allergy Intermediate Rash Verified 04/13/18 11:20 - MEDICATIONS Home Medications: Ambulatory Orders Medication Instructions Recorded Confirmed Aspirin [Aspirin EC] 81 mg PO DAILY 02/17/14 04/13/18 Lisinopril 20 mg PO DAILY 05/23/15 04/13/18 Amlodipine Besylate 10 mg PO DAILY 09/14/15 04/13/18 Clopidogrel [Plavix] 75 mg PO DAILY 09/22/17 04/13/18 Isosorbide Mononitrate ER [Imdur] 30 mg PO DAILY 09/22/17 04/13/18 Metoprolol Succinate 100 mg PO DAILY 09/22/17 04/13/18 Ranitidine HCl [Heartburn Relief] 150 mg PO BID 09/22/17 04/13/18 Atorvastatin Calcium 20 mg PO QPM 04/13/18 04/13/18 glipiZIDE [Glipizide] 5 mg PO BID 04/13/18 04/13/18 Furosemide 40 mg PO DAILY #30 tablet 04/15/18 Nitroglycerin [Nitrostat] 0.4 mg SL Q5MIN PRN #30 tablet 04/15/18 Potassium Chloride [K-Dur] 20 meq PO DAILYWM #30 tablet 04/15/18 - PHYSICAL EXAM AT DISCHARGE General Appearance: positive: No acute distress, Alert Eyes Bilateral: positive: Normal inspection, PERRL, EOMI, No lid inflammation, Conjunctivae nml, No scleral icterus ENT: positive: ENT inspection nml, Pharynx nml, No signs of dehydration. negative: Purulent nasal drainage, Pharyngeal erythema, Oral lesions Neck: positive: Nml inspection, Thyroid nml, No JVD, Trachea midline. negative : Lymphadenopathy (R), Lymphadenopathy (L), Stiff neck, Kernig's sign, Carotid bruit, Tracheal deviation Respiratory: positive: Chest non-tender, No respiratory distress, Breath sounds nml. negative: Wheezes, Rales, Rhonchi Cardiovascular: positive: Regular rate & rhythm, No murmur, No gallop Peripheral Pulses: positive: 2+ Abdomen: positive: Non-tender, No organomegaly, Nml bowel sounds, No distention. negative: Guarding, Rebound, Hepatomegaly Back: positive: Nml inspection. negative: CVA tenderness (R), CVA tenderness (L ) Skin: positive: Color nml, Warm, Dry, Other (Patient has bruising over bilateral arms). negative: Cyanosis, Diaphoresis, Pallor Extremities: positive: Non-tender, Full ROM, Nml appearance, No pedal edema Neurologic/Psychiatric: positive: Oriented x3, CN's nml (2-12), Motor nml, Sensation nml, Mood/affect nml - LABS Result Diagrams: 04/15/18 06:20 04/15/18 06:20 Other Lab Results: Laboratory Results WBC 3.4 x10^3/uL (4.8-10.8) L 04/15/18 06:20 RBC 3.85 10^6/uL (4.20-5.40) L 04/15/18 06:20 Hgb 12.0 g/dL (12.0-16.0) 04/15/18 06:20 Hct 36.2 % (37.0-47.0) L 04/15/18 06:20 MCV 93.9 fL (81.0-99.0) 04/15/18 06:20 MCH 31.2 pg (27.0-31.0) H 04/15/18 06:20 MCHC 33.2 g/dL (32.0-36.0) 04/15/18 06:20 RDW 14.4 % (12.0-15.0) 04/15/18 06:20 Plt Count 144 10^3/uL (130-450) 04/15/18 06:20 MPV 8.4 fL (7.9-10.8) 04/15/18 06:20 Neut # (Auto) 3.5 10^3/uL (1.5-6.6) 04/13/18 11:40 Lymph # (Auto) 0.6 10^3/uL (1.5-3.5) L 04/13/18 11:40 [place] # (Auto) 0.4 10^3/uL (0.0-1.0) 04/13/18 11:40 Eos # (Auto) 0.1 10^3/uL (0.0-0.7) 04/13/18 11:40 Baso # (Auto) 0.0 10^3/uL (0.0-0.1) 04/13/18 11:40 Absolute Nucleated RBC 0.00 x10^3/uL 04/13/18 11:40 Nucleated RBC % 0.0 /100WBC 04/13/18 11:40 D-Dimer 351.6 ng/mL (200.0-255.0) H 04/13/18 11:40 Sodium 138 mmol/L (135-145) 04/15/18 06:20 Potassium 3.2 mmol/L (3.5-5.0) L 04/15/18 06:20 Chloride 105 mmol/L (101-111) 04/15/18 06:20 Carbon Dioxide 25 mmol/L (21-32) 04/15/18 06:20 Anion Gap 8.0 (6-13) 04/15/18 06:20 BUN 40 mg/dL (6-20) H 04/15/18 06:20 Creatinine 2.7 mg/dL (0.4-1.0) H 04/15/18 06:20 Estimated GFR (MDRD) 17 (>89) L 04/15/18 06:20 Glucose 91 mg/dL (70-100) 04/15/18 06:20 POC Whole Bld Glucose 152 mg/dL (70 - 100) H 04/15/18 11:12 Glycated Hemoglobin 5.6 % (4.6-6.2) 04/14/18 04:55 Estim Average Glucose 114 (70-100) H 04/14/18 04:55 Calcium 8.9 mg/dL (8.5-10.3) 04/15/18 06:20 Total Bilirubin 0.6 mg/dL (0.2-1.0) 04/13/18 11:40 AST 64 IU/L (10-42) H 04/13/18 11:40 ALT 51 IU/L (10-60) 04/13/18 11:40 Alkaline Phosphatase 109 IU/L (42-121) 04/13/18 11:40 Troponin I 0.06 ng/mL (<0.49) 04/13/18 14:53 B-Natriuretic Peptide 1043 pg/mL (5-100) H 04/15/18 06:20 Total Protein 6.5 g/dL (6.7-8.2) L 04/13/18 11:40 Albumin 3.5 g/dL (3.2-5.5) 04/13/18 11:40 Globulin 3.0 g/dL (2.1-4.2) 04/13/18 11:40 Albumin/Globulin Ratio 1.2 (1.0-2.2) 04/13/18 11:40 Lipase 49 U/L (22-51) 04/13/18 11:40 Urine Color YELLOW 04/13/18 12:51 Urine Clarity CLEAR (CLEAR) 04/13/18 12:51 Urine pH 6.0 PH (5.0-7.5) 04/13/18 12:51 Ur Specific Calcium 1.015 (1.002-1.030) 04/13/18 12:51 Urine Protein 100 mg/dL (NEGATIVE) H 04/13/18 12:51 Urine Glucose (UA) NEGATIVE mg/dL (NEGATIVE) 04/13/18 12:51 Urine Ketones NEGATIVE mg/dL (NEGATIVE) 04/13/18 12:51 Urine Occult Blood TRACE-LYSE (NEGATIVE) 04/13/18 12:51 Urine Nitrite NEGATIVE (NEGATIVE) 04/13/18 12:51 Urine Bilirubin NEGATIVE (NEGATIVE) 04/13/18 12:51 Urine Urobilinogen 0.2 (NORMAL) E.U./dL (NORMAL) 04/13/18 12:51 Ur Leukocyte Esterase NEGATIVE (NEGATIVE) 04/13/18 12:51 Urine RBC 0-5 /HPF (0-5) 04/13/18 12:51 Urine WBC 4-5 /HPF (0-5) 04/13/18 12:51 Urine WBC Clumps PRESENT 04/13/18 12:51 Ur Squamous Epith Cells FEW Squamous (<= Few) 04/13/18 12:51 Urine Bacteria Rare /HPF (None Seen) 04/13/18 12:51 Ur Microscopic Review INDICATED 04/13/18 12:51 Urine Culture Comments NOT INDICATED 04/13/18 12:51 - DIAGNOSTIC IMAGING Diagnostic Imaging Results: Final report reviewed Diagnostic Imaging Results Comments: Echocardiogram Interpretation summary: 1. Moderate left ventricular enlargement 2. Overall left ventricular systolic function is moderate to severely impaired with an ejection fraction of 30-35% 3. Severe increase in left atrial volume index 4. There is mild aortic regurgitation 5. There is moderate mitral regurgitation 6. Mildly abnormal right heart pressures Chest x-ray 04/13/2018 Impression: 1. Increased bilateral infiltrate or edema, greater within the lower lung [place] and left mildly greater than right. 2. New very small right pleural effusion Chest x-ray 04/15/2018 Impression: 1. Improved edema Venous duplex Impression: No evidence for deep venous thrombosis left lower extremity. - FOLLOW UP Follow Up: Patient will follow up with her primary care physician as well as her boat engines installer. She will be discharged on oral Lasix and will be checking her weight daily. She was referred for CHF classes and cardiac rehab. She was discharged in stable condition back to her home. - TIME SPENT Time Spent in Discharge (Minutes): 45
== END 2018-04-15 12:59 | disposition home or self-care (01) | DRG 292 ==
LOC: EDUNIT# → ED 11:14 → MS2 15:57
PROVIDERS: ADMIT Internal Medicine; ATTEND Internal Medicine
DX: I25.119 Atherosclerotic heart disease of native coronary artery with unspecified angina pectoris (principal); I11.0 Hypertensive heart disease with heart failure; N18.4 Chronic kidney disease, stage 4 (severe); I50.23 Acute on chronic systolic (congestive) heart failure; I25.2 Old myocardial infarction; J44.9 Chronic obstructive pulmonary disease, unspecified; E11.9 Type 2 diabetes mellitus without complications; K21.9 Gastro-esophageal reflux disease without esophagitis; F20.9 Schizophrenia, unspecified; Z95.1 Presence of aortocoronary bypass graft; I25.110 Atherosclerotic heart disease of native coronary artery with unstable angina pectoris; E86.0 Dehydration; I34.0 Nonrheumatic mitral (valve) insufficiency; E11.22 Type 2 diabetes mellitus with diabetic chronic kidney disease; E78.5 Hyperlipidemia, unspecified; Z86.73 Personal history of transient ischemic attack (TIA), and cerebral infarction without residual deficits; Z79.84 Long term (current) use of oral hypoglycemic drugs; Z86.69 Personal history of other diseases of the nervous system and sense organs; Z79.899 Other long term (current) drug therapy; Z79.02 Long term (current) use of antithrombotics/antiplatelets; Z79.82 Long term (current) use of aspirin; Z87.891 Personal history of nicotine dependence
CPT/HCPCS: 36415; 71045; 71046; 80048; 80053; 81001; 81003; 83036; 83690; 83880; 84484; 85025; 85027; 85379; 87086; 93005; 93306; 96361; 96374; 99283; 99284; 99285

== ENCOUNTER 2018-05-06 11:24 | Outpatient (CLI) | payer MEDICARE, MEDICAID | END 2018-05-07 11:25 | disposition short-term general hospital (02) | LOC: EMS 11:24 | PROVIDERS: ATTEND Surgery | DX: R07.9 Chest pain, unspecified (principal) | CPT/HCPCS: A0425; A0427 ==

== ENCOUNTER 2018-11-18 17:49 | Inpatient (IN) | payer MEDICARE, MEDICAID ==
[2018-11-18 18:22] LABS: BASOPHILS % (AUTO) 0.3 %; HGB - HEMOGLOBIN 10.9 g/dL (12.0-16.0); LYMPHOCYTES # (AUTO) 0.6 10^3/uL (1.5-3.5); LYMPHOCYTES % (AUTO) 15.3 %; MEAN CORPUSCULAR HGB CONC 31.4 g/dL (32.0-36.0); MEAN CORPUSCULAR VOLUME 95.6 fL (81.0-99.0); MEAN PLATELET VOLUME 9.1 fL (7.9-10.8); MONOCYTES # (AUTO) 0.4 10^3/uL (0.0-1.0); MONOCYTES % (AUTO) 11.2 %; NEUTROPHILS # (AUTO) 2.9 10^3/uL (1.5-6.6); NEUTROPHILS % (AUTO) 72.2 %; PLT - PLATELET COUNT 133 10^3/uL (130-450); RED BLOOD COUNT 3.64 10^6/uL (4.20-5.40); RED CELL DISTRIBUTION WIDTH 17.6 % (12.0-15.0)
[2018-11-18 18:30] LABS: ALBUMIN 3.4 g/dL (3.2-5.5); BILIRUBIN,TOTAL 0.8 mg/dL (0.2-1.0); CALCIUM 9.1 mg/dL (8.5-10.3); CREATININE 3.3 mg/dL (0.4-1.0); TOTAL PROTEIN 6.8 g/dL (6.7-8.2)
--- NOTE | 2018-11-18 19:19 | ED Physician Documentation ---
PD HPI DYSPNEA - Stated complaint Stated Complaint: WET COUGH/DIAH - Chief complaint Chief Complaint: Resp - History obtained from History obtained from: Patient - History of Present Illness Timing - onset: Other (3 days of wet cough and diarrhea today. Coughing is worse today with audible wheezing and yellow sputum. Was in the hospital 1 month ago for "fluid around the heart" and put on abx.) Review of Systems Ten Systems: 10 systems reviewed and negative Constitutional: denies: Fever, Chills Nose: denies: Rhinorrhea / runny nose, Congestion Cardiac: denies: Chest pain / pressure, Palpitations Respiratory: reports: Dyspnea, Cough GI: reports: Diarrhea, Bloody / black stool. 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, Oophrectomy Cardiovascular: CABG HEENT: Cataracts - Present Medications Home Medications: Ambulatory Orders Medication Instructions Recorded Confirmed RX: Aspirin [Aspirin EC] 81 mg PO DAILY 02/17/14 11/18/18 RX: Lisinopril 20 mg PO DAILY 05/23/15 11/18/18 RX: Amlodipine Besylate 10 mg PO DAILY 09/14/15 11/18/18 RX: Clopidogrel [Plavix] 75 mg PO DAILY 09/22/17 11/18/18 RX: Isosorbide Mononitrate ER 30 mg PO DAILY 09/22/17 11/18/18 [Imdur] RX: Metoprolol Succinate 100 mg PO DAILY 09/22/17 11/18/18 RX: Ranitidine HCl [Heartburn 150 mg PO BID 09/22/17 11/18/18 Relief] RX: Atorvastatin Calcium 20 mg PO QPM 04/13/18 11/18/18 RX: glipiZIDE [Glipizide] 5 mg PO BID 04/13/18 11/18/18 RX: Furosemide 40 mg PO DAILY #30 tablet 04/15/18 11/18/18 RX: Nitroglycerin [Nitrostat] 0.4 mg SL Q5MIN PRN #30 tablet 04/15/18 11/18/18 RX: Potassium Chloride [K-Dur] 20 meq PO DAILYWM #30 tablet 04/15/18 11/18/18 - Allergies Allergies/Adverse Reactions: Allergies Allergy/AdvReac Type Severity Reaction Status Date / Time No Known Drug Allergies Allergy Verified 11/18/18 18:47 - Social History Does the pt smoke?: No Smoking Status: Never smoker Does the pt drink ETOH?: No Does the pt have substance abuse?: No - Immunizations Immunizations are current?: Yes - POLST Patient has POLST: No PD ED PE NORMAL - Vitals Vital signs reviewed: Yes - General General: Alert and oriented X 3, No acute distress - HEENT HEENT: PERRL, EOMI - Neck Neck: Supple, no meningeal sign, No bony TTP - Cardiac Cardiac: RRR (bradycardic), No murmur - Respiratory Respiratory: No respiratory distress, Other (rhonchorous/wheezy L>R) - Abdomen Abdomen: Soft, Non tender - Back Back: No CVA TTP, No spinal TTP - Derm Derm: Normal color, Warm and dry - Extremities Extremities: No edema, No calf tenderness / cord - Neuro Neuro: Alert and oriented X 3, Normal speech - Psych Psych: Normal mood, Normal affect Results - Vitals Vitals: Vital Signs - 24 hr 11/18/18 11/18/18 17:54 20:05 Temperature 35.9 C L Heart Rate 47 L 46 L Respiratory 16 22 Rate Blood Pressure 131/79 H O2 Saturation 100 Oxygen O2 Source Room air - Labs Labs: Laboratory Tests 11/18/18 11/18/18 11/18/18 18:14 18:14 19:55 WBC 4.0 L RBC 3.64 L Hgb 10.9 L Hct 34.8 L MCV 95.6 MCH 30.0 MCHC 31.4 L RDW 17.6 H Plt Count 133 MPV 9.1 Neut # (Auto) 2.9 Lymph # (Auto) 0.6 L [place] # (Auto) 0.4 Eos # (Auto) 0.0 Baso # (Auto) 0.0 Absolute Nucleated RBC 0.00 Nucleated RBC % 0.0 Sodium 140 Potassium 4.1 Chloride 107 Carbon Dioxide 19 L Anion Gap 14.0 H BUN 49 H Creatinine 3.3 H Estimated GFR (MDRD) 14 L Glucose 159 H Lactic Acid 2.1 Calcium 9.1 Total Bilirubin 0.8 AST 26 ALT 21 Alkaline Phosphatase 140 H Total Protein 6.8 Albumin 3.4 Globulin 3.4 Albumin/Globulin Ratio 1.0 Lipase 37 - Rads (name of study) 2v chest Radiology: EMP read contemporaneously (MARILIN CID) PD MEDICAL DECISION MAKING - ED course ED course: This is a 72-year-old woman with multiple comorbidities including but not limited to coronary disease status post CABG type 2 diabetes, renal ins ufficiency who presents with a productive cough and rhonchorous lungs with a right middle lobe infiltrate, acute on chronic renal failure. Bradycardia. And now acute diarrhea in the setting of recent antibiotic use for I guess, pericarditis. The history of pericarditis is pretty nebulous, she does not know what hospital she was treated at, she does not know what antibiotic she was on, she cannot even point to where they put in the needle to get the fluid sample. Regardless She has multiple issues all of which are concerning between the pneumonia, the renal failure, the bradycardia. She deserves admission for a cautious fluid hydration and monitoring her electrolytes and renal function. She will need to be ruled out for C. difficile. PORT score 102 Departure - Departure Disposition: ED Place in Observation Clinical Impression: Congestive heart failure, Hypertension, Diabetes, Pneumonia, Acute on chronic renal failure, Bradycardia Discharge Date/Time: 11/18/18 20:57
--- NOTE | 2018-11-18 19:33 | XRAY Report ---
Reason: cough Procedure Date: 11/18/2018 Accession Number: [id number] / [id number] Procedure: XR - Chest 2 View X-Ray CPT Code: 56176 FULL RESULT: EXAM: CHEST RADIOGRAPHY EXAM DATE: 11/18/2018 07:11 PM. CLINICAL HISTORY: Cough. COMPARISON: CHEST 1 VIEW 04/15/2018 7:30 AM. TECHNIQUE: 2 views. FINDINGS: Lungs/Pleura: There is reticular opacity within the right midlung. Costophrenic sulcus blunting may represent small effusions. There is no evidence of pneumothorax. Mediastinum: Patient has undergone median sternotomy. There is myocardium medley. There is thoracic aorta calcification. Other: None. IMPRESSION: 1. There is cardiomegaly. There is thoracic aortic tortuosity. 2. There is increased opacity within the right midlung which could represent infiltrate. 3. Small effusions may be present. 4. There is no evidence of pneumothorax. RADIA
[2018-11-18] MEDS ORDERED: IPRATROPIUM/ALBUTEROL 3 ML NEB INH STA (19:34)
[2018-11-18] MEDS ORDERED: SODIUM CHLORIDE 0.9% 500 ML IV ONE (19:34)
[2018-11-18] MEDS ORDERED: cefTRIAXone 1 GM in SODIUM CHLORIDE 0.9% MINIBAG 100 ML IV STA (19:36)
[2018-11-18] MEDS ORDERED: AZITHROMYCIN INJ 500 MG in SODIUM CHLORIDE 0.9% 250 ML IV STA (19:36)
[2018-11-18] MEDS ORDERED: oxyCODONE 5 MG TABLET PO PRN (20:24)
[2018-11-18] MEDS ORDERED: MORPHINE 2 MG/ML CARPUJECT IVP PRN (20:24)
[2018-11-18] MEDS ORDERED: PROCHLORPERAZINE 10 MG/2 ML VIAL IVP PRN (20:24)
[2018-11-18] MEDS ORDERED: ONDANSETRON 4 MG/2 ML VIAL IVP PRN (20:24)
[2018-11-18] MEDS ORDERED: ACETAMINOPHEN 325 MG TABLET PO PRN (20:24)
[2018-11-18] MEDS ORDERED: NITROGLYCERIN SL 0.4 MG TABLET SL PRN (20:27)
--- NOTE | 2018-11-18 20:35 | HISTORY & PHYSICAL EXAMINATION ---
Chief Complaint - Chief Complaint Chief Complaint: Shortness of breath, cough, generally feeling unwell History of Present Illness - Admitted From Admitted From:: Emergency depart - History Obtained From Records Reviewed: Emergency depart History obtained from: Patient and Dr. Rajiv Carney ED physician Exam Limitations: None - History of Present Illness HPI Comment/Other: Patient is a 72-year-old female with multiple comorbid conditions including coronary artery disease status post CABG, type 2 diabetes, chronic renal i nsufficiency, [place] Heart Association class II CHF,And though she does have an inhaler at home denies any known pulmonary disease history. She presented to the emergency room today with complaints of shortness of breath and cough for 1 week and some other just vague generalized symptoms such as not feeling well, fatigued, periodically lightheaded, followed by diarrhea that started today. She denies any fever. Denies any recent travel or sick contacts. She does have decreased urine output and has had decreased oral intake throughout today. In the emergency room she was evaluated and found to have multiple minor abnormalities including the suggestion of a possible right middle lobe inf iltrates on the chest x-ray, with normal oxygen saturation on room air. She had no elevated white blood cell count and was afebrile, her electrolytes looked well but her renal function was worse than usual with a baseline creatinine level in the neighborhood of 2.5 now presenting with 3.3. She also had some bradycardia in the 40s, and she had reported some lightheadedness so this may or may not be symptomatic bradycardia based on how long she has had heart rates this low. Due to all of these minor abnormalities Dr. Orellana thought it would be best to admit the patient for presumptive treatment of community-acquired pneumonia, acute on chronic renal failure in the setting of CHF, and bradycardia. 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 Cardiovascular: reports: CABG HEENT: reports: Cataracts - Family & Social History Family History: Father: CAD Living arrangement: At home Living Situation: With family - Substance History Use: Uses substance without health or social issues: Cannabis (Patient stopped smoking cigarettes about 15 years ago but has been smoking marijuana cigarettes recently though she states about 4 days ago she decided to quit) - POLST Patient has POLST: No POLST Status: Full Code Meds/Allgy - Home Medications Home Medications: Ambulatory Orders Medication Instructions Recorded Confirmed Aspirin [Aspirin EC] 81 mg PO DAILY 02/17/14 11/18/18 Lisinopril 20 mg PO DAILY 05/23/15 11/18/18 Amlodipine Besylate 10 mg PO DAILY 09/14/15 11/18/18 Clopidogrel [Plavix] 75 mg PO DAILY 09/22/17 11/18/18 Isosorbide Mononitrate ER [Imdur] 30 mg PO DAILY 09/22/17 11/18/18 Metoprolol Succinate 100 mg PO DAILY 09/22/17 11/18/18 Ranitidine HCl [Heartburn Relief] 150 mg PO BID 09/22/17 11/18/18 Atorvastatin Calcium 20 mg PO QPM 04/13/18 11/18/18 glipiZIDE [Glipizide] 5 mg PO BID 04/13/18 11/18/18 Furosemide 40 mg PO DAILY #30 tablet 04/15/18 11/18/18 Nitroglycerin [Nitrostat] 0.4 mg SL Q5MIN PRN #30 tablet 04/15/18 11/18/18 Potassium Chloride [K-Dur] 20 meq PO DAILYWM #30 tablet 04/15/18 11/18/18 - Allergies Allergies/Adverse Reactions: Allergies Allergy/AdvReac Type Severity Reaction Status Date / Time No Known Drug Allergies Allergy Verified 11/18/18 18:47 Review of Systems - Constitutional Constitutional: reports: Fatigue, Weakness - Ears, Nose & Throat Ears, Nose & Throat: denies: Nasal discharge - Cardiovascular Cariovascular: reports: Lightheadedness. denies: Irregular heart rate, Palpitations, Chest pain, Edema - Respiratory Respiratory: reports: Cough, Sputum production, Wheezing, SOB at rest - Gastrointestinal Gastrointestinal: reports: Abdominal pain - Genitourinary Genitourinary: reports: Other (decreased urine ouput) - Musculoskeletal Musculoskeletal: reports: Muscle pain, Joint pain - Integumentary Integumentary: reports: Dryness - Neurological Neurological: reports: General weakness, Headache, Dizziness. denies: Focal weakness - All Other Systems All Other Systems: reports: Reviewed and negative Prior Level of Functionality: independant Exam - Vital Signs Vital Signs: Vital Signs x48h Temp Pulse Resp BP Pulse Ox 11/18/18 20:05 46 L 22 11/18/18 17:54 35.9 C L 47 L 16 131/79 H 100 - Physical Exam General Appearance: positive: No acute distress Eyes Bilateral: positive: Other (R corneal opacity) ENT: positive: Dry mucous membranes Neck: positive: Nml inspection, Thyroid nml, No JVD Respiratory: positive: Chest non-tender, No respiratory distress, Wheezes, Rhonchi. negative: Breath sounds nml, Rales Cardiovascular: positive: Regular rate & rhythm, No murmur, No gallop Peripheral Pulses: positive: 2+ Abdomen: positive: Non-tender, No organomegaly, Nml bowel sounds, No distention Skin: positive: Dry Extremities: positive: Non-tender, Nml appearance, No pedal edema Neurologic/Psychiatric: positive: Oriented x3, CN's nml (2-12), Motor nml, Sensation nml Sepsis Event Note (H) - Evaluation Current Stage of Sepsis: Ruled out Conclusion/Plan - Problem List (1) Dyspnea and respiratory abnormalities Conclusion/Plan: Patient complains of dyspnea and cough times 1 week. Her complaints are fairly nonspecific, and she denies any known history of pulmonary disease including COPD or asthma. She does however have a remote smoking history and she has recently been smoking marijuana and she does have an inhaler prescribed by her PCP. It sounds like it is in rescue inhaler but she has been using it more frequently recently. She denies any fever. There is no WBC elevation. Chest x-ray is questionable for a possible small infiltrate in the right middle lobe possibly suggesting an aspirate or community-acquired pneumonia. Patient will be started on IV antibiotics with anticipation to switch to orals by tomorrow, as she is 100% on room air. We will also try bronchodilators as needed. Pending clinical improvement she may be discharged as early as tomorrow based on some of the other findings. (2) NYHA class 2 acute on chronic systolic heart failure Conclusion/Plan: Patient's echocardiogram in 2017 was reviewed and she does have an EF of approximately 35%. She does not appear to be in volume overload however her lungs do have crackles and rhonchi. She has acute on chronic renal failure with a creatinine of 3.3 and a baseline in the mid 2 range. I will provide very gentle IV fluid hydration to correct the kidneys due to the heart failure and I will hold off on the Lasix and hold off on the metoprolol due to the bradycardia that she had in the emergency department. Depending on her blood pressures and heart rate we may need to resume short acting beta-alaina tomorrow morning, and possibly discharged on a lower dose of Lasix. (3) Acute on chronic renal failure Conclusion/Plan: As stated above, acute on chronic renal failure with a creatinine of 3.3 and a baseline closer to 2.5. She is mildly dehydrated probably related to the diarrhea that she started to have today as well as the insensible water loss that she is probably had due to the dyspnea and cough for 1 week. Due to her heart failure IV fluid hydration will to be gentle. I will start her on 50 mL/h and withhold Lasix to see if this helps balance her out. And though she does have heart failure, due to her current renal function I am also going to withhold the lisinopril for now. Qualifiers: Acute renal failure type: unspecified Chronic kidney disease stage: stage 4 (severe) Qualified Code(s): N17.9 - Acute kidney failure, unspecified; N18.4 - Chronic kidney disease, stage 4 (severe) (4) Bradycardia Conclusion/Plan: Bradycardia may be related to decreased renal clearance of beta-alaina. I will hold beta-alaina overnight and allow a washout to see if this helps. It appears to be primarily asymptomatic for now, so we will watch and potentially resume at a lower dose tomorrow. (5) Diabetes Conclusion/Plan: Patient's not a very good historian so is unclear how well controlled her diabetes is. I certainly would not recommend the use of orals at this point given her renal function so we will control her with a sliding scale and get an A1c in the morning. 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 As stated above, due to the bradycardia I am holding the beta-alaina, continuing the amlodipine, and holding Lasix and lisinopril due to the current renal status. Depending on labs in the morning and her vital signs overnight We may resume at lower doses in the morning. Qualifiers: Hypertension type: essential hypertension Qualified Code(s): I10 - Essential (primary) hypertension - Lab Results Lab results reviewed: Yes Fish Bones: 11/18/18 18:14 11/18/18 18:14 - Diagnostic Imaging Results Diagnostic Imaging Results: positive: Final report reviewed, Read independently - EKG Results EKG Comparison: Unchanged from prior EKG Core Measures - Anticipated LOS I expect patient to be DC'd or transferred within 96 hours.: Yes - DVT/VTE - Prophylaxis VTE/DVT Device ordered at admit?: Yes
[2018-11-18] MEDS ORDERED: SODIUM CHLORIDE 0.9% 1,000 ML IV SCH (21:00)
[2018-11-18 21:44] LABS: BILIRUBIN,URINE NEGATIVE (NEGATIVE); GLUCOSE, URINE (UA) NEGATIVE (NEGATIVE); KETONES,URINE (UA) NEGATIVE (NEGATIVE); LEUKOCYTE ESTERASE, URINE MODERATE (NEGATIVE); NITRITE,URINE NEGATIVE (NEGATIVE); OCCULT BLOOD,URINE TRACE-INTA (NEGATIVE); PH,URINE 6.5 PH (5.0-7.5); PROTEIN,URINE 100 mg/dL (NEGATIVE); UROBILINOGEN,URINE 1 (NORMAL) E.U./dL (NORMAL)
[2018-11-18 21:46] LABS: CLARITY,URINE CLOUDY (CLEAR)
[2018-11-18 21:56] LABS: BACTERIA,URINE Many /HPF (None Seen); SQUAMOUS EPITHELIAL CELL,UR NONE SEEN (<= Few); WBC CLUMPS,URINE PRESENT
[2018-11-18] MEDS: FAMOTIDINE 20 MG TABLET PO SCH (22:23)
[2018-11-18] MEDS: INSULIN ASPART 300 UNIT/3 ML PEN SUBQ SCH (22:23)
[2018-11-18] MEDS: ATORVASTATIN 10 MG TABLET PO SCH (22:23)
[2018-11-19] MEDS: SODIUM CHLORIDE FLUSH 0.9% 10 ML SYRINGE IVP SCH ×3 (01:06→18:10)
[2018-11-19 05:32] LABS: HGB - HEMOGLOBIN 10.9 g/dL (12.0-16.0); MEAN CORPUSCULAR HEMOGLOBIN 30.5 pg (27.0-31.0); MEAN CORPUSCULAR HGB CONC 32.4 g/dL (32.0-36.0); MEAN CORPUSCULAR VOLUME 94.1 fL (81.0-99.0); MEAN PLATELET VOLUME 8.8 fL (7.9-10.8); RED BLOOD COUNT 3.56 10^6/uL (4.20-5.40); RED CELL DISTRIBUTION WIDTH 17.6 % (12.0-15.0); WHITE BLOOD COUNT 3.3 x10^3/uL (4.8-10.8)
[2018-11-19 05:46] LABS: HB2 TOTAL 11.5 g/dL; HEMOGLOBIN A1C 0.44 g/dL; HEMOGLOBIN A1C % 5.7 % (4.6-6.2)
[2018-11-19 05:47] LABS: CALCIUM 8.6 mg/dL (8.5-10.3)
[2018-11-19] MEDS: IPRATROPIUM/ALBUTEROL 3 ML NEB INH PRN ×4 (07:46→23:00)
[2018-11-19] MEDS ORDERED: POTASSIUM CHLORIDE 20 MEQ TABLET PO ONE (08:15)
[2018-11-19] MEDS: INSULIN ASPART 300 UNIT/3 ML PEN SUBQ SCH ×4 (08:21→20:44)
[2018-11-19] MEDS: AZITHROMYCIN 250 MG TABLET PO SCH (08:23)
[2018-11-19] MEDS: amLODIPine 5 MG TABLET PO SCH (08:23)
[2018-11-19] MEDS: POTASSIUM CHLORIDE 20 MEQ TABLET PO SCH (08:23)
[2018-11-19] MEDS: ISOSORBIDE MONONITRATE ER 30 MG TABLET PO SCH (08:23)
[2018-11-19] MEDS: CLOPIDOGREL 75 MG TABLET PO SCH (08:23)
[2018-11-19] MEDS: POLYETHYLENE GLYCOL 3350 17 GM PACKET PO SCH ×2 (08:24→10:29)
[2018-11-19] MEDS: ASPIRIN EC 81 MG TABLET PO SCH (08:24)
[2018-11-19] MEDS ORDERED: cefTRIAXone 1 GM in SODIUM CHLORIDE 0.9% MINIBAG 100 ML IV SCH (09:00)
[2018-11-19] MEDS ORDERED: ALBUTEROL NEB 2.5 MG/3 ML INH PRN (09:10)
--- NOTE | 2018-11-19 11:34 | PROVIDER PROGRESS NOTE ---
Subjective - Prog Note Date Prog Note Date: 11/19/18 - Subjective Pt reports feeling: No change Subjective: pt still present cough, crackers lung sound bilaterally and some SOB. pt denies fever, chill, and chest pain. Current Medications - Current Medications Current Medications: Active Medications Acetaminophen (Tylenol) 650 mg PO Q4HR PRN PRN Reason: Pain 1 to 4 Albuterol () 2.5 mg INH RTQ4H PRN PRN Reason: Wheezing Albuterol/Ipratropium (Duoneb) 3 ml INH RTQ4H PRN PRN Reason: Wheezing Last Admin: 11/19/18 07:46 Dose: 3 ml Amlodipine Besylate (Norvasc) 10 mg PO DAILY [facility] Last Admin: 11/19/18 08:23 Dose: 10 mg Aspirin (Ecotrin) 81 mg PO DAILY [facility] Last Admin: 11/19/18 08:24 Dose: 81 mg Atorvastatin Calcium (Lipitor) 20 mg PO QPM [facility] Last Admin: 11/18/18 22:23 Dose: 20 mg Azithromycin (Zithromax) 250 mg PO DAILY [facility] Stop: 11/22/18 09:01 Last Admin: 11/19/18 08:23 Dose: 250 mg Clopidogrel Bisulfate (Plavix) 75 mg PO DAILY [facility] Last Admin: 11/19/18 08:23 Dose: 75 mg Famotidine (Pepcid) 20 mg PO HS [facility] Last Admin: 11/18/18 22:23 Dose: 20 mg Ceftriaxone Sodium 2 gm/ (Sodium Chloride) 100 mls @ 200 mls/hr IV DAILY [facility] Insulin Aspart (Novolog) 1 - 9 unit SUBQ 0800,1200,1700,2100 [facility]; Protocol Last Admin: 11/19/18 08:21 Dose: Not Given Isosorbide Mononitrate (Imdur) 30 mg PO DAILY [facility] Last Admin: 11/19/18 08:23 Dose: 30 mg Morphine Sulfate (Morphine (Carpuject)) 2 mg IVP Q2HR PRN PRN Reason: Pain 8 to 10 Nitroglycerin (Nitrostat) 0.4 mg SL Q5MIN PRN PRN Reason: Chest Pain Ondansetron HCl (Zofran Inj) 4 mg IVP Q6HR PRN PRN Reason: Nausea / Vomiting Oxycodone HCl (Roxicodone) 5 mg PO Q4HR PRN PRN Reason: Pain 5 to 7 Polyethylene Glycol (Miralax) 17 gm PO DAILY [facility] Last Admin: 11/19/18 10:29 Dose: 17 gm Potassium Chloride (K-Dur) 20 meq PO DAILYWM [facility] Last Admin: 11/19/18 08:23 Dose: 20 meq Prochlorperazine Edisylate (Compazine Inj) 10 mg IVP Q6HR PRN PRN Reason: Nausea / Vomiting Sodium Chloride (Normal Saline Flush 0.9%) 10 ml IVP PRN PRN PRN Reason: NEEDED PER PROVIDER ORDERS Sodium Chloride (Normal Saline Flush 0.9%) 10 ml IVP 0100,0900,1700 [facility] Last Admin: 11/19/18 08:24 Dose: Not Given Aspirin [Aspirin EC] 81 mg PO DAILY 02/17/14 Lisinopril 20 mg PO DAILY 05/23/15 Amlodipine Besylate 10 mg PO DAILY 09/14/15 Clopidogrel [Plavix] 75 mg PO DAILY 09/22/17 Isosorbide Mononitrate ER [Imdur] 30 mg PO DAILY 09/22/17 Metoprolol Succinate 100 mg PO DAILY 09/22/17 Ranitidine HCl [Heartburn Relief] 150 mg PO BID 09/22/17 Atorvastatin Calcium 20 mg PO QPM 04/13/18 Albuterol Sulf [Ventolin Hfa Inhaler] 2 puffs INH Q4H PRN 11/19/18 glipiZIDE ER [Glucotrol Xl] 2.5 mg PO DAILY 11/19/18 Objective - Vital Signs/Intake & Output Reviewed Vital Signs: Yes Vital Signs: Vital Signs x48h Temp Pulse Pulse Resp BP Pulse Ox 11/19/18 07:46 51 L 34 H 11/19/18 07:43 36.5 C 53 L 18 123/62 97 11/19/18 04:30 48 L 96 Intake & Output: Intake & Output 11/16/18 11/17/18 11/18/18 11/19/18 23:59 23:59 23:59 23:59 Intake Total 850 1158.0 Output Total 100 200 Balance 750 958.0 - Objective General Appearance: positive: No acute distress, Alert. negative: Lethargic Eyes Bilateral: positive: Normal inspection, PERRL, No lid inflammation, C onjunctivae nml ENT: positive: ENT inspection nml, Pharynx nml, No signs of dehydration. negative: Purulent nasal drainage, Pharyngeal erythema, Oral lesions Neck: positive: Nml inspection, Thyroid nml, No JVD, Trachea midline. negative: Thyromegaly, Lymphadenopathy (R), Lymphadenopathy (L), Stiff neck, Swelling/bruising, Tracheal deviation Respiratory: positive: Chest non-tender, No respiratory distress, Rales, Rhonchi . negative: Wheezes Cardiovascular: positive: Regular rate & rhythm, No murmur, No gallop, Bradycardia. negative: Irregularly irregular, Extrasystoles, Tachycardia, JVD present, Systolic murmur, Diastolic murmur Peripheral Pulses: 2+ Radial (R), 2+ Radial (L), 2+ Dorsalis pedis (R), 2+ Dorsalis pedis (L) Abdomen: positive: Non-tender, No organomegaly, Nml bowel sounds, No distention. negative: Tenderness, Guarding, Rebound Back: positive: Nml inspection. negative: CVA tenderness (R), CVA tenderness (L) Skin: positive: Color nml, No rash, Warm, Dry. negative: Cyanosis, Diaphoresis, Pallor Extremities: positive: Non-tender, Full ROM, Nml appearance. negative: Calf tenderness, Joint swelling, Keon's sign/cords Neurologic/Psychiatric: positive: Oriented x3, Sensation nml, Mood/affect nml. negative: Weakness, Sensory loss, Facial droop, Slurred/abnml speech, Depressed mood/affect - Lab Results Fish Bones: 11/19/18 05:15 11/19/18 05:15 Other Labs: Lab Results x24hrs 11/19/18 11/19/18 11/19/18 Range/Units 11:23 07:36 05:15 WBC (4.8-10.8) x10^3/uL RBC (4.20-5.40) 10^6/uL Hgb (12.0-16.0) g/dL Hct (37.0-47.0) % MCV (81.0-99.0) fL MCH (27.0-31.0) pg MCHC (32.0-36.0) g/dL RDW (12.0-15.0) % Plt Count (130-450) 10^3/uL MPV (7.9-10.8) fL Neut # (Auto) (1.5-6.6) 10^3/uL Lymph # (Auto) (1.5-3.5) 10^3/uL Schleicher # (Auto) (0.0-1.0) 10^3/uL Eos # (Auto) (0.0-0.7) 10^3/uL Baso # (Auto) (0.0-0.1) 10^3/uL Absolute Nucleated RBC x10^3/uL Nucleated RBC % /100WBC Sodium 137 (135-145) mmol/L Potassium 3.4 L (3.5-5.0) mmol/L Chloride 106 (101-111) mmol/L Carbon Dioxide 19 L (21-32) mmol/L Anion Gap 12.0 (6-13) BUN 47 H (6-20) mg/dL Creatinine 3.0 H (0.4-1.0) mg/dL Estimated GFR (MDRD) 15 L (>89) Glucose 89 (70-100) mg/dL POC Whole Bld Glucose 149 H 67 L (70 - 100) mg/dL Glycated Hemoglobin (4.6-6.2) % Estim Average Glucose (70-100) Lactic Acid (0.5-2.2) mmol/L Calcium 8.6 (8.5-10.3) mg/dL Total Bilirubin (0.2-1.0) mg/dL AST (10-42) IU/L ALT (10-60) IU/L Alkaline Phosphatase (42-121) IU/L Total Protein (6.7-8.2) g/dL Albumin (3.2-5.5) g/dL Globulin (2.1-4.2) g/dL Albumin/Globulin Ratio (1.0-2.2) Lipase (22-51) U/L Urine Color Urine Clarity (CLEAR) Urine pH (5.0-7.5) PH Ur Specific [place] (1.002-1.030) Urine Protein (NEGATIVE) mg/dL Urine Glucose (UA) (NEGATIVE) mg/dL Urine Ketones (NEGATIVE) mg/dL Urine Occult Blood (NEGATIVE) Urine Nitrite (NEGATIVE) Urine Bilirubin (NEGATIVE) Urine Urobilinogen (NORMAL) E.U./dL Ur Leukocyte Esterase (NEGATIVE) Urine RBC (0-5) /HPF Urine WBC (0-5) /HPF Urine WBC Clumps Ur Squamous Epith Cells (<= Few) Urine Bacteria (None Seen) /HPF Ur Microscopic Review Urine Culture Comments Influenza A (Rapid) (Negative) Influenza B (Rapid) (Negative) 11/19/18 11/19/18 11/18/18 Range/Units 05:15 05:15 21:20 WBC 3.3 L (4.8-10.8) x10^3/uL RBC 3.56 L (4.20-5.40) 10^6/uL Hgb 10.9 L (12.0-16.0) g/dL Hct 33.5 L (37.0-47.0) % MCV 94.1 (81.0-99.0) fL MCH 30.5 (27.0-31.0) pg MCHC 32.4 (32.0-36.0) g/dL RDW 17.6 H (12.0-15.0) % Plt Count 129 L (130-450) 10^3/uL MPV 8.8 (7.9-10.8) fL Neut # (Auto) (1.5-6.6) 10^3/uL Lymph # (Auto) (1.5-3.5) 10^3/uL Schleicher # (Auto) (0.0-1.0) 10^3/uL Eos # (Auto) (0.0-0.7) 10^3/uL Baso # (Auto) (0.0-0.1) 10^3/uL Absolute Nucleated RBC x10^3/uL Nucleated RBC % /100WBC Sodium (135-145) mmol/L Potassium (3.5-5.0) mmol/L Chloride (101-111) mmol/L Carbon Dioxide (21-32) mmol/L Anion Gap (6-13) BUN (6-20) mg/dL Creatinine (0.4-1.0) mg/dL Estimated GFR (MDRD) (>89) Glucose (70-100) mg/dL POC Whole Bld Glucose (70 - 100) mg/dL Glycated Hemoglobin 5.7 (4.6-6.2) % Estim Average Glucose 117 H (70-100) Lactic Acid (0.5-2.2) mmol/L Calcium (8.5-10.3) mg/dL Total Bilirubin (0.2-1.0) mg/dL AST (10-42) IU/L ALT (10-60) IU/L Alkaline Phosphatase (42-121) IU/L Total Protein (6.7-8.2) g/dL Albumin (3.2-5.5) g/dL Globulin (2.1-4.2) g/dL Albumin/Globulin Ratio (1.0-2.2) Lipase (22-51) U/L Urine Color YELLOW Urine Clarity CLOUDY (CLEAR) Urine pH 6.5 (5.0-7.5) PH Ur Specific [place] 1.020 (1.002-1.030) Urine Protein 100 H (NEGATIVE) mg/dL Urine Glucose (UA) NEGATIVE (NEGATIVE) mg/dL Urine Ketones NEGATIVE (NEGATIVE) mg/dL Urine Occult Blood TRACE-INTA (NEGATIVE) Urine Nitrite NEGATIVE (NEGATIVE) Urine Bilirubin NEGATIVE (NEGATIVE) Urine Urobilinogen 1 (NORMAL) (NORMAL) E.U./dL Ur Leukocyte Esterase MODERATE H (NEGATIVE) Urine RBC 6-10 H (0-5) /HPF Urine WBC >25 H (0-5) /HPF Urine WBC Clumps PRESENT Ur Squamous Epith Cells NONE SEEN (<= Few) Urine Bacteria Many H (None Seen) /HPF Ur Microscopic Review INDICATED Urine Culture Comments INDICATED Influenza A (Rapid) (Negative) Influenza B (Rapid) (Negative) 11/18/18 11/18/18 11/18/18 Range/Units 21:20 21:10 19:55 WBC (4.8-10.8) x10^3/uL RBC (4.20-5.40) 10^6/uL Hgb (12.0-16.0) g/dL Hct (37.0-47.0) % MCV (81.0-99.0) fL MCH (27.0-31.0) pg MCHC (32.0-36.0) g/dL RDW (12.0-15.0) % Plt Count (130-450) 10^3/uL MPV (7.9-10.8) fL Neut # (Auto) (1.5-6.6) 10^3/uL Lymph # (Auto) (1.5-3.5) 10^3/uL Schleicher # (Auto) (0.0-1.0) 10^3/uL Eos # (Auto) (0.0-0.7) 10^3/uL Baso # (Auto) (0.0-0.1) 10^3/uL Absolute Nucleated RBC x10^3/uL Nucleated RBC % /100WBC Sodium (135-145) mmol/L Potassium (3.5-5.0) mmol/L Chloride (101-111) mmol/L Carbon Dioxide (21-32) mmol/L Anion Gap (6-13) BUN (6-20) mg/dL Creatinine (0.4-1.0) mg/dL Estimated GFR (MDRD) (>89) Glucose (70-100) mg/dL POC Whole Bld Glucose 162 H (70 - 100) mg/dL Glycated Hemoglobin (4.6-6.2) % Estim Average Glucose (70-100) Lactic Acid 2.1 (0.5-2.2) mmol/L Calcium (8.5-10.3) mg/dL Total Bilirubin (0.2-1.0) mg/dL AST (10-42) IU/L ALT (10-60) IU/L Alkaline Phosphatase (42-121) IU/L Total Protein (6.7-8.2) g/dL Albumin (3.2-5.5) g/dL Globulin (2.1-4.2) g/dL Albumin/Globulin Ratio (1.0-2.2) Lipase (22-51) U/L Urine Color Urine Clarity (CLEAR) Urine pH (5.0-7.5) PH Ur Specific [place] (1.002-1.030) Urine Protein (NEGATIVE) mg/dL Urine Glucose (UA) (NEGATIVE) mg/dL Urine Ketones (NEGATIVE) mg/dL Urine Occult Blood (NEGATIVE) Urine Nitrite (NEGATIVE) Urine Bilirubin (NEGATIVE) Urine Urobilinogen (NORMAL) E.U./dL Ur Leukocyte Esterase (NEGATIVE) Urine RBC (0-5) /HPF Urine WBC (0-5) /HPF Urine WBC Clumps Ur Squamous Epith Cells (<= Few) Urine Bacteria (None Seen) /HPF Ur Microscopic Review Urine Culture Comments Influenza A (Rapid) Negative (Negative) Influenza B (Rapid) Negative (Negative) 11/18/18 11/18/18 Range/Units 18:14 18:14 WBC 4.0 L (4.8-10.8) x10^3/uL RBC 3.64 L (4.20-5.40) 10^6/uL Hgb 10.9 L (12.0-16.0) g/dL Hct 34.8 L (37.0-47.0) % MCV 95.6 (81.0-99.0) fL MCH 30.0 (27.0-31.0) pg MCHC 31.4 L (32.0-36.0) g/dL RDW 17.6 H (12.0-15.0) % Plt Count 133 (130-450) 10^3/uL MPV 9.1 (7.9-10.8) fL Neut # (Auto) 2.9 (1.5-6.6) 10^3/uL Lymph # (Auto) 0.6 L (1.5-3.5) 10^3/uL Schleicher # (Auto) 0.4 (0.0-1.0) 10^3/uL Eos # (Auto) 0.0 (0.0-0.7) 10^3/uL Baso # (Auto) 0.0 (0.0-0.1) 10^3/uL Absolute Nucleated RBC 0.00 x10^3/uL Nucleated RBC % 0.0 /100WBC Sodium 140 (135-145) mmol/L Potassium 4.1 (3.5-5.0) mmol/L Chloride 107 (101-111) mmol/L Carbon Dioxide 19 L (21-32) mmol/L Anion Gap 14.0 H (6-13) BUN 49 H (6-20) mg/dL Creatinine 3.3 H (0.4-1.0) mg/dL Estimated GFR (MDRD) 14 L (>89) Glucose 159 H (70-100) mg/dL POC Whole Bld Glucose (70 - 100) mg/dL Glycated Hemoglobin (4.6-6.2) % Estim Average Glucose (70-100) Lactic Acid (0.5-2.2) mmol/L Calcium 9.1 (8.5-10.3) mg/dL Total Bilirubin 0.8 (0.2-1.0) mg/dL AST 26 (10-42) IU/L ALT 21 (10-60) IU/L Alkaline Phosphatase 140 H (42-121) IU/L Total Protein 6.8 (6.7-8.2) g/dL Albumin 3.4 (3.2-5.5) g/dL Globulin 3.4 (2.1-4.2) g/dL Albumin/Globulin Ratio 1.0 (1.0-2.2) Lipase 37 (22-51) U/L Urine Color Urine Clarity (CLEAR) Urine pH (5.0-7.5) PH Ur Specific [place] (1.002-1.030) Urine Protein (NEGATIVE) mg/dL Urine Glucose (UA) (NEGATIVE) mg/dL Urine Ketones (NEGATIVE) mg/dL Urine Occult Blood (NEGATIVE) Urine Nitrite (NEGATIVE) Urine Bilirubin (NEGATIVE) Urine Urobilinogen (NORMAL) E.U./dL Ur Leukocyte Esterase (NEGATIVE) Urine RBC (0-5) /HPF Urine WBC (0-5) /HPF Urine WBC Clumps Ur Squamous Epith Cells (<= Few) Urine Bacteria (None Seen) /HPF Ur Microscopic Review Urine Culture Comments Influenza A (Rapid) (Negative) Influenza B (Rapid) (Negative) ABX Reporting Has patient been on IV antibiotics over the past 48 hours?: Yes Sepsis Event Note (H) - Evaluation Current Stage of Sepsis: Ruled out Assessment/Plan - Problem List (1) Dyspnea and respiratory abnormalities Impression: Chest x-ray reveals a possible small infiltrate in the right middle lobe possibly suggesting an aspirate or community-acquired pneumonia. Lung sound indicated bilateral crackles, pt clinically present some of SOB continue treat with antibiotics, increase Rocephin to 2gram per day continue Duoneb PRN, pt has hx of COPD supplement O2 as needed (2) NYHA class 2 acute on chronic systolic heart failure Conclusion/Plan: Patient's echocardiogram in 03/2018 was reviewed and she does have an EF of approximately 30-35%. She does not appear to be in volume overload, however her lungs do have crackles and rhonchi, and CXR reveals small pleural effusion hold IVF, pt's creatinine decrease after treatment, at the same time hold home med Lasix because worsening Creatinine. recheck ECHO to check SOB etiology and current heart failure status continue tele and vital, pt may need resume Beta-alaina if bradycardia is better. (3) Acute on chronic renal failure Conclusion/Plan: pt has heart failure, EF at 30-35% 7 months ago. After gently hydration, creatinine decrease to 3.0. pt has IV of antibiotics, now hold IVF continue lab monitor hold nephrologic toxic agent (4) Bradycardia Conclusion/Plan: slight better, now HR is 53, continue hold beta-alaina continue tele and vital monitor (5) Diabetes pt's A1C is 5.7, good control, continue ACHS, (6) Hypertension stable, resume home meds continue vital monitor (7) UTI UA reveals positive UTI continue Rocephin followup culture and sensitivity study
[2018-11-19] MEDS ORDERED: BISACODYL 5 MG TABLET PO PRN (12:50)
[2018-11-19] MEDS: ATORVASTATIN 10 MG TABLET PO SCH (20:41)
[2018-11-19] MEDS: FAMOTIDINE 20 MG TABLET PO SCH (20:41)
[2018-11-20] MEDS: IPRATROPIUM/ALBUTEROL 3 ML NEB INH PRN ×3 (00:05→11:16)
[2018-11-20] MEDS ORDERED: BENZOCAINE/MENTHOL LOZENGE MM PRN (02:00)
[2018-11-20] MEDS: SODIUM CHLORIDE FLUSH 0.9% 10 ML SYRINGE IVP SCH ×3 (02:19→17:05)
[2018-11-20 05:38] LABS: HGB - HEMOGLOBIN 10.2 g/dL (12.0-16.0); MEAN CORPUSCULAR HGB CONC 31.9 g/dL (32.0-36.0); MEAN CORPUSCULAR VOLUME 94.1 fL (81.0-99.0); MEAN PLATELET VOLUME 9.4 fL (7.9-10.8); RED BLOOD COUNT 3.4 10^6/uL (4.20-5.40); RED CELL DISTRIBUTION WIDTH 17.5 % (12.0-15.0); WHITE BLOOD COUNT 3.7 x10^3/uL (4.8-10.8)
[2018-11-20 05:39] LABS: CALCIUM 8.9 mg/dL (8.5-10.3); CREATININE 2.8 mg/dL (0.4-1.0)
[2018-11-20] MEDS: INSULIN ASPART 300 UNIT/3 ML PEN SUBQ SCH ×4 (07:54→20:36)
[2018-11-20] MEDS: POTASSIUM CHLORIDE 20 MEQ TABLET PO SCH (08:22)
[2018-11-20] MEDS ORDERED: FUROSEMIDE 40 MG TABLET PO SCH (09:00)
[2018-11-20] MEDS ORDERED: cefTRIAXone 1 GM VIAL IVP SCH (09:00)
[2018-11-20] MEDS ORDERED: METOPROLOL SUCCINATE 50 MG TABLET PO SCH ×2 (09:00→13:00)
[2018-11-20] MEDS ORDERED: methylPREDNISolone SUCCINATE 40 MG/ML VIAL IVP SCH (09:00)
[2018-11-20] MEDS: cefTRIAXone 2 GM in SODIUM CHLORIDE 0.9% MINIBAG 100 ML IV SCH (10:02)
--- NOTE | 2018-11-20 10:06 | XRAY Report ---
Reason: SOB Procedure Date: 11/20/2018 Accession Number: [id number] / [id number] Procedure: XR - Chest 1 View X-Ray CPT Code: 63851 FULL RESULT: EXAM: CHEST RADIOGRAPHY EXAM DATE: 11/20/2018 09:07 AM. CLINICAL HISTORY: SOB. COMPARISON: CHEST 2 VIEW 11/18/2018 6:55 PM. TECHNIQUE: 1 view. FINDINGS: Lungs/Pleura: Unchanged COPD. Bilateral hazy lower lung predominant interstitial opacities are increased compared to prior and could reflect increasing pulmonary edema. Curvilinear right midlung airspace consolidation is unchanged. Persistent small bibasal pleural effusions. Mediastinum: Borderline cardiomegaly seen. Atheromatous plaque of the aortic arch. Sternal wires appear intact. Other: None. IMPRESSION: 1. Increased hazy bilateral lower lung predominant interstitial opacities reflect increasing pulmonary edema. 2. Borderline cardiomegaly with heart size mildly increased compared to prior. 3. Unchanged curvilinear right midlung consolidation. RADIA
[2018-11-20] MEDS: FUROSEMIDE 20 MG/2 ML VIAL IVP SCH ×2 (10:29→14:56)
[2018-11-20] MEDS: amLODIPine 5 MG TABLET PO SCH (10:37)
[2018-11-20] MEDS: CLOPIDOGREL 75 MG TABLET PO SCH (10:37)
[2018-11-20] MEDS: LISINOPRIL 20 MG TABLET PO SCH (10:39)
[2018-11-20] MEDS: ASPIRIN EC 81 MG TABLET PO SCH (10:39)
[2018-11-20] MEDS: AZITHROMYCIN 250 MG TABLET PO SCH (10:39)
[2018-11-20] MEDS: guaiFENesin 600 MG TABLET PO SCH ×3 (11:38→20:34)
[2018-11-20] MEDS: ISOSORBIDE MONONITRATE ER 30 MG TABLET PO SCH (11:38)
--- NOTE | 2018-11-20 12:04 | PROVIDER PROGRESS NOTE ---
Subjective - Prog Note Date Prog Note Date: 11/20/18 - Subjective Pt reports feeling: Improved Subjective: pt report she feel some better but she still present cough, some of SOB, and bilateral crackles and wheezing lung sound. pt denies chest pain, fever, chill, headache. 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 Pt state she will talk with her another son, who is DPOA first, then she will let her DPOA talk with me. I will talk with her son whenever they are ready. Current Medications - Current Medications Current Medications: Active Medications Acetaminophen (Tylenol) 650 mg PO Q4HR PRN PRN Reason: Pain 1 to 4 Albuterol () 2.5 mg INH RTQ4H PRN PRN Reason: Wheezing Albuterol/Ipratropium (Duoneb) 3 ml INH RTQ4H PRN PRN Reason: Wheezing Last Admin: 11/20/18 11:16 Dose: 3 ml Amlodipine Besylate (Norvasc) 10 mg PO DAILY [facility] Last Admin: 11/20/18 10:37 Dose: 10 mg Aspirin (Ecotrin) 81 mg PO DAILY [facility] Last Admin: 11/20/18 10:39 Dose: 81 mg Atorvastatin Calcium (Lipitor) 20 mg PO QPM [facility] Last Admin: 11/19/18 20:41 Dose: 20 mg Azithromycin (Zithromax) 250 mg PO DAILY [facility] Stop: 11/22/18 09:01 Last Admin: 11/20/18 10:39 Dose: 250 mg Bisacodyl (Dulcolax) 10 mg PO DAILY PRN PRN Reason: Constipation Last Admin: 11/19/18 13:06 Dose: 5 mg Clopidogrel Bisulfate (Plavix) 75 mg PO DAILY [facility] Last Admin: 11/20/18 10:37 Dose: 75 mg Famotidine (Pepcid) 20 mg PO HS [facility] Last Admin: 11/19/18 20:41 Dose: 20 mg Furosemide (Lasix Inj 20mg Vial) 20 mg IVP BIDDIURETIC [facility] Last Admin: 11/20/18 10:29 Dose: 20 mg Guaifenesin (Mucinex) 600 mg PO BID [facility] Last Admin: 11/20/18 11:38 Dose: 600 mg Ceftriaxone Sodium 2 gm/ (Sodium Chloride) 100 mls @ 200 mls/hr IV DAILY [facility] Last Infusion: 11/20/18 10:45 Dose: Infused Insulin Aspart (Novolog) 1 - 5 unit SUBQ 0800,1200,1700,2100 [facility]; Protocol Isosorbide Mononitrate (Imdur) 30 mg PO DAILY [facility] Last Admin: 11/20/18 11:38 Dose: 30 mg Lisinopril (Zestril) 20 mg PO DAILY [facility] Last Admin: 11/20/18 10:39 Dose: 20 mg Metoprolol Succinate (Toprol Xl) 100 mg PO DAILY [facility] Metoprolol Succinate (Toprol Xl) 50 mg PO ONCE [facility] Stop: 11/20/18 15:00 Morphine Sulfate (Morphine (Carpuject)) 2 mg IVP Q2HR PRN PRN Reason: Pain 8 to 10 Nitroglycerin (Nitrostat) 0.4 mg SL Q5MIN PRN PRN Reason: Chest Pain Ondansetron HCl (Zofran Inj) 4 mg IVP Q6HR PRN PRN Reason: Nausea / Vomiting Oxycodone HCl (Roxicodone) 5 mg PO Q4HR PRN PRN Reason: Pain 5 to 7 Polyethylene Glycol (Miralax) 17 gm PO DAILY [facility] Last Admin: 11/20/18 12:35 Dose: 17 gm Potassium Chloride (K-Dur) 20 meq PO DAILYWM [facility] Last Admin: 11/20/18 08:22 Dose: 20 meq Prednisone (Deltasone) 20 mg PO DAILYWM [facility] Prochlorperazine Edisylate (Compazine Inj) 10 mg IVP Q6HR PRN PRN Reason: Nausea / Vomiting Sodium Chloride (Normal Saline Flush 0.9%) 10 ml IVP PRN PRN PRN Reason: NEEDED PER PROVIDER ORDERS Sodium Chloride (Normal Saline Flush 0.9%) 10 ml IVP 0100,0900,1700 [facility] Last Admin: 11/20/18 10:07 Dose: 10 ml Throat Lozenges (Cepacol) 1 lozenge MM Q2HR PRN PRN Reason: Throat pain Last Admin: 11/20/18 02:19 Dose: 1 lozenge Aspirin [Aspirin EC] 81 mg PO DAILY 02/17/14 Lisinopril 20 mg PO DAILY 05/23/15 Amlodipine Besylate 10 mg PO DAILY 09/14/15 Clopidogrel [Plavix] 75 mg PO DAILY 09/22/17 Isosorbide Mononitrate ER [Imdur] 30 mg PO DAILY 09/22/17 Metoprolol Succinate 100 mg PO DAILY 09/22/17 Ranitidine HCl [Heartburn Relief] 150 mg PO BID 09/22/17 Atorvastatin Calcium 20 mg PO QPM 04/13/18 Albuterol Sulf [Ventolin Hfa Inhaler] 2 puffs INH Q4H PRN 11/19/18 glipiZIDE ER [Glucotrol Xl] 2.5 mg PO DAILY 11/19/18 Objective - Vital Signs/Intake & Output Reviewed Vital Signs: Yes Vital Signs: Vital Signs x48h Temp Pulse Pulse Resp BP Pulse Ox 11/20/18 11:35 36.5 C 74 18 143/84 H 94 11/20/18 11:18 75 20 11/20/18 07:53 36.4 C L 71 20 122/63 93 11/20/18 07:34 71 20 11/20/18 07:19 36.7 C 69 18 135/60 H 92 Intake & Output: Intake & Output 11/17/18 11/18/18 11/19/18 11/20/18 23:59 23:59 23:59 23:59 Intake Total 850 1764.0 680 Output Total 100 400 Balance 750 1364.0 680 - Objective General Appearance: positive: No acute distress, Alert. negative: Lethargic Eyes Bilateral: positive: Normal inspection, PERRL, No lid inflammation, Conjunctivae nml ENT: positive: ENT inspection nml, Pharynx nml, No signs of dehydration. negative: Purulent nasal drainage, Pharyngeal erythema, Oral lesions Neck: positive: Nml inspection, Thyroid nml, No JVD, Trachea midline. negative: Thyromegaly, Lymphadenopathy (R), Lymphadenopathy (L), Stiff neck, Swelling/bruising, Tracheal deviation Respiratory: positive: Chest non-tender, Wheezes, Rhonchi Cardiovascular: positive: Regular rate & rhythm, No murmur, No gallop. negative: Extrasystoles, Tachycardia, Bradycardia, Systolic murmur, Diastolic murmur Peripheral Pulses: 2+ Radial (R), 2+ Radial (L), 2+ Dorsalis pedis (R), 2+ Dorsalis pedis (L) Abdomen: positive: Non-tender, No organomegaly, Nml bowel sounds, No distention. negative: Tenderness, Guarding, Rebound Back: positive: Nml inspection. negative: CVA tenderness (R), CVA tenderness (L) Skin: positive: Color nml, No rash, Warm, Dry. negative: Cyanosis, Diaphoresis, Pallor, Skin rash Extremities: positive: Non-tender, Full ROM, Nml appearance. negative: Calf tenderness, Joint swelling, Keon's sign/cords Neurologic/Psychiatric: positive: Oriented x3, Sensation nml, Mood/affect nml. negative: Weakness, Sensory loss, Facial droop, Slurred/abnml speech, Depressed mood/affect - Lab Results Fish Bones: 11/20/18 05:25 11/20/18 05:25 Other Labs: Lab Results x24hrs 11/20/18 11/20/18 11/20/18 Range/Units 11:24 07:46 05:25 WBC (4.8-10.8) x10^3/uL RBC (4.20-5.40) 10^6/uL Hgb (12.0-16.0) g/dL Hct (37.0-47.0) % MCV (81.0-99.0) fL MCH (27.0-31.0) pg MCHC (32.0-36.0) g/dL RDW (12.0-15.0) % Plt Count (130-450) 10^3/uL MPV (7.9-10.8) fL Sodium 140 (135-145) mmol/L Potassium 3.7 (3.5-5.0) mmol/L Chloride 112 H (101-111) mmol/L Carbon Dioxide 17 L (21-32) mmol/L Anion Gap 11.0 (6-13) BUN 44 H (6-20) mg/dL Creatinine 2.8 H (0.4-1.0) mg/dL Estimated GFR (MDRD) 17 L (>89) Glucose 112 H (70-100) mg/dL POC Whole Bld Glucose 156 H 105 H (70 - 100) mg/dL Calcium 8.9 (8.5-10.3) mg/dL 11/20/18 11/19/18 11/19/18 Range/Units 05:25 20:41 16:30 WBC 3.7 L (4.8-10.8) x10^3/uL RBC 3.40 L (4.20-5.40) 10^6/uL Hgb 10.2 L (12.0-16.0) g/dL Hct 32.0 L (37.0-47.0) % MCV 94.1 (81.0-99.0) fL MCH 30.0 (27.0-31.0) pg MCHC 31.9 L (32.0-36.0) g/dL RDW 17.5 H (12.0-15.0) % Plt Count 132 (130-450) 10^3/uL MPV 9.4 (7.9-10.8) fL Sodium (135-145) mmol/L Potassium (3.5-5.0) mmol/L Chloride (101-111) mmol/L Carbon Dioxide (21-32) mmol/L Anion Gap (6-13) BUN (6-20) mg/dL Creatinine (0.4-1.0) mg/dL Estimated GFR (MDRD) (>89) Glucose (70-100) mg/dL POC Whole Bld Glucose 137 H 102 H (70 - 100) mg/dL Calcium (8.5-10.3) mg/dL ABX Reporting Has patient been on IV antibiotics over the past 48 hours?: Yes Sepsis Event Note (H) - Evaluation Current Stage of Sepsis: Ruled out Assessment/Plan - Problem List (1) Dyspnea and respiratory abnormalities Impression: 11/20 pt report she feel some better today. breath is better. New CXR reveals increase pulmonary edema, lung sound still present crackles and wheezing bilaterally. continue antibiotics Lasix bid IV 20mg Solu-medrol 30mg tid, will switch to PO Prednisone continue Duoneb PRN O2 supplement as needed Chest x-ray reveals a possible small infiltrate in the right middle lobe possibly suggesting an aspirate or community-acquired pneumonia. Lung sound indicated bilateral crackles, pt clinically present some of SOB continue treat with antibiotics, increase Rocephin to 2gram per day continue Duoneb PRN, pt has hx of COPD supplement O2 as needed (2) NYHA class 3 acute on chronic systolic heart failure Conclusion/Plan: 11/20 new ECHO reveals pt's EF 20-25%, worsening than before 30-35%. will discuss with pt and her family for possible advance care continue Lisinopril, resume home Metoprolol Lasix 20mg IV Bid, will add spironolactone if BP can tolerate Patient's echocardiogram in 03/2018 was reviewed and she does have an EF of approximately 30-35%. She does not appear to be in volume overload, however her lungs do have crackles and rhonchi, and CXR reveals small pleural effusion hold IVF, pt's creatinine decrease after treatment, at the same time hold home med Lasix because worsening Creatinine. recheck ECHO to check SOB etiology and current heart failure status continue tele and vital, pt may need resume Beta-alaina if bradycardia is better. (3) Acute on chronic renal failure Conclusion/Plan: After gently hydration, creatinine decrease to 2.7. now hold IVF because of respiratory edema continue lab monitor hold nephrologic toxic agent (4) Bradycardia Conclusion/Plan: 11/20 resolved. resume Metoprolol continue tele and vital monitor slight better, now HR is 53, continue hold beta-alaina continue tele and vital monitor (5) Diabetes pt's A1C is 5.7, good control, continue ACHS, (6) Hypertension stable, resume home meds continue vital monitor (7) UTI UA reveals positive UTI continue Rocephin followup culture and sensitivity study
[2018-11-20] MEDS: POLYETHYLENE GLYCOL 3350 17 GM PACKET PO SCH (12:35)
[2018-11-20] MEDS: SODIUM CHLORIDE FLUSH 0.9% 10 ML SYRINGE IVP PRN ×2 (13:14→15:01)
--- NOTE | 2018-11-20 18:06 | ADVANCE CARE PLANNING NOTE ---
Advance Care Planning - Date/Time Date: 11/20/18 Time: 18:04 - Purpose of encounter Text: advance care for pt - Parties in attendance Parties in attendance: pt , two sons and one daughter and daughter in law and me - Decisional capacity Decisional capacity of: pt has limited capacity to make her decision. pt's old son is DPOA, who make the decision for pt - Subjective/Patient's story Subjective/Patient's story: pt's old son state her mother has heart failure at EF 20% for couple years, she continued to be managed by her cyber intel planner, she has been doing fine. Her stage 4-5 kidney problem has been managed by Dr Cadena for many years also. She has CVA before last year. Then she developed seizure since she had CVA. Pt's son state her mother continue doing fine and managed by her PCP and her cyber intel planner and kidney doctor. 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 - Objective/Medical story Objective/Medical Story: Patient is a 72-year-old female with multiple comorbid conditions including coronary artery disease status post CABG, type 2 diabetes, chronic renal insufficiency, [place] Heart Association class II CHF, hx of CVA, seizure. now ECHO study reveals her EF 20-25%. - Goals of Care Goals of care determinations: continue management pt at her home, without palliative and hospice care consult, and has her full code status without changing - Plan Plan: keep full code status, plan d/c home tomorrow or after tomorrow if pt is stable for d/c, plan desat and sat study for pt to see if pt qualify for home O2. pt request home O2. - Time Spent on Advance Care Planning Time spent on advance care plannin
[2018-11-20] MEDS: ATORVASTATIN 10 MG TABLET PO SCH (20:34)
[2018-11-20] MEDS: FAMOTIDINE 20 MG TABLET PO SCH (20:35)
[2018-11-20] MEDS ORDERED: INSULIN ASPART 300 UNIT/3 ML PEN SUBQ SCH (21:23)
[2018-11-21] MEDS: SODIUM CHLORIDE FLUSH 0.9% 10 ML SYRINGE IVP SCH ×3 (01:15→10:29)
[2018-11-21] MEDS: IPRATROPIUM/ALBUTEROL 3 ML NEB INH PRN ×2 (03:28→07:02)
[2018-11-21 05:15] LABS: MEAN CORPUSCULAR HGB CONC 31.5 g/dL (32.0-36.0); MEAN CORPUSCULAR VOLUME 95.2 fL (81.0-99.0); MEAN PLATELET VOLUME 9.3 fL (7.9-10.8); RED BLOOD COUNT 3.34 10^6/uL (4.20-5.40); RED CELL DISTRIBUTION WIDTH 17.3 % (12.0-15.0); WHITE BLOOD COUNT 4.5 x10^3/uL (4.8-10.8)
[2018-11-21 05:23] LABS: CREATININE 2.9 mg/dL (0.4-1.0)
[2018-11-21] MEDS: FUROSEMIDE 20 MG/2 ML VIAL IVP SCH (06:03)
[2018-11-21] MEDS ORDERED: predniSONE 20 MG TABLET PO SCH (08:00)
[2018-11-21] MEDS: POTASSIUM CHLORIDE 20 MEQ TABLET PO SCH (08:14)
[2018-11-21 08:33] VITALS: BP 132/63
[2018-11-21] MEDS ORDERED: predniSONE 10 MG TABLET PO ONE (09:00)
[2018-11-21] MEDS ORDERED: METOPROLOL SUCCINATE 50 MG TABLET PO SCH (09:00)
[2018-11-21] MEDS: cefTRIAXone 2 GM in SODIUM CHLORIDE 0.9% MINIBAG 100 ML IV SCH (09:39)
[2018-11-21] MEDS: amLODIPine 5 MG TABLET PO SCH (09:57)
[2018-11-21] MEDS: CLOPIDOGREL 75 MG TABLET PO SCH (09:59)
[2018-11-21] MEDS: ISOSORBIDE MONONITRATE ER 30 MG TABLET PO SCH (09:59)
[2018-11-21] MEDS: ASPIRIN EC 81 MG TABLET PO SCH (09:59)
[2018-11-21] MEDS: guaiFENesin 600 MG TABLET PO SCH (10:00)
[2018-11-21] MEDS: AZITHROMYCIN 250 MG TABLET PO SCH (10:00)
[2018-11-21] MEDS: POLYETHYLENE GLYCOL 3350 17 GM PACKET PO SCH (10:06)
[2018-11-21] MEDS: LISINOPRIL 20 MG TABLET PO SCH (10:14)
--- NOTE | 2018-11-21 10:45 | Discharge Plan ---
Discharge Plan Disposition: Home, Self Care Condition: Poor Prescriptions: Cephalexin [Keflex] 250 mg PO BID #10 capsule predniSONE [Deltasone] 10 mg PO [id number] #6 tab Saccharomyces Boulardii [Florastor] 250 mg PO DAILY #5 capsule Diet: Diabetic Activity Restrictions: Activity as Tolerated Shower Restrictions: No (fall precaution, caregiver closely monitor) Instruction Topics: Cephalexin tablets or capsules, Prednisone tablets Additional Instructions or Follow Up instructions: You may followup your PCP in one week, followup your diaphragm builder and block hacker as out-pt. You are prescribed antibiotics to continue your treatment course. Should your symptoms return or worsen, you may present ER or call 911 or your PCP for help. No Smoking: If you smoke, Please STOP! Call for help.
--- NOTE | 2018-11-21 10:51 | DISCHARGE SUMMARY ---
Discharge Summary Discharge Date: 11/21/18 Discharging Provider: BERMUDEZ Primary Care Provider: provide pt PCP list Condition at Discharge: Poor Discharge Disposition: Home, Self Care Discharge Facility Name: home - DIAGNOSES Admission Diagnoses: (1) Dyspnea and respiratory abnormalities (2) NYHA class 2 acute on chronic systolic heart failure (3) Acute on chronic renal failure (4) Bradycardia (5) Diabetes (6) Hypertension Discharge Diagnoses with Status of Each Condition: (1) Dyspnea and respiratory abnormalities improved. pt has 98% sat on room air and HR 66 on the rest, and not present SOB. Pt has 96% sat on room air and HR 80 when pt walk 75ft. (2) NYHA class 3 acute on chronic systolic heart failure pt's ECHO reveals 20-25% EF. 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 pt present comfortable, no clinic SOB when she is on the rest. Less than ordinary activity causes fatigue, dyspnea. (3) Acute on chronic renal failure improved, followup her multiple punch press operator (4) Bradycardia resolved (5) Diabetes stable, followup PCP (6) Hypertension stable (7) UTI continue antibiotics (8) COPD improved, pt has 98% sat on room air and HR 66 on the rest, and not present SOB. Pt has 96% sat on room air and HR 80 when pt walk 75ft. pt is prescribed 6 pills 10mg Prednisone for short time usage to wane off (9) pneumonia after treatment, pt has 98% sat on room air and HR 66 on the rest, and not present SOB. Pt has 96% sat on room air and HR 80 when pt walk 75ft. pt has no fever, chill. WBC is normal. pt is prescribed antibiotics to finish the treatment course. - HPI History of Present Illness: refer from Dr. Stein's HPI on 11/18/18 as the following: Patient is a 72-year-old female with multiple comorbid conditions including coronary artery disease status post CABG, type 2 diabetes, chronic renal insufficiency, [place] Heart Association class II CHF,And though she does have an inhaler at home denies any known pulmonary disease history. She presented to the emergency room today with complaints of shortness of breath and cough for 1 week and some other just vague generalized symptoms such as not feeling well, fatigued, periodically lightheaded, followed by diarrhea that started today. She denies any fever. Denies any recent travel or sick contacts. She does have decreased urine output and has had decreased oral intake throughout today. In the emergency room she was evaluated and found to have multiple minor abnormalities including the suggestion of a possible right middle lobe infiltrates on the chest x-ray, with normal oxygen saturation on room air. She had no elevated white blood cell count and was afebrile, her electrolytes looked well but her renal function was worse than usual with a baseline creatinine level in the neighborhood of 2.5 now presenting with 3.3. She also had some bradycardia in the 40s, and she had reported some lightheadedness so this may or may not be symptomatic bradycardia based on how long she has had heart rates this low. Due to all of these minor abnormalities Dr. Orellana thought it would be best to admit the patient for presumptive treatment of community-acquired pneumonia, acute on chronic renal failure in the setting of CHF, and bradycardia. - HOSPITAL COURSE Hospital Course: pt was admitted for complaints of shortness of breath and cough. pt was fount to have UTI and pneumonia, acute on chronic renal failure. Pt was treated with antibiotics. pt has 98% sat on room air and HR 66 on the rest, and not present SOB. Pt has 96% sat on room air and HR 80 when pt walk 75ft. Pt's kidney function return her baseline stage 4 CKD. Pt had ECHO study which reveals pt remain her EF 20-25%. pt is prescribed antibiotics for finish the treatment course. pt request to be d/c today. discussed with pt and pt's family about pt's compromised heart and renal, and other medical conditions which could lead to deteriorate fast or even . Palliative care and hospice care consult are offered to pt, but pt and pt's family decline at this time. - ALLERGIES Allergies/Adverse Reactions: Allergies Allergy/AdvReac Type Severity Reaction Status Date / Time No Known Drug Allergies Allergy Verified 11/18/18 18:47 - MEDICATIONS Home Medications: Ambulatory Orders Medication Instructions Recorded Confirmed Aspirin [Aspirin EC] 81 mg PO DAILY 02/17/14 11/18/18 Lisinopril 20 mg PO DAILY 05/23/15 11/18/18 Amlodipine Besylate 10 mg PO DAILY 09/14/15 11/18/18 Clopidogrel [Plavix] 75 mg PO DAILY 09/22/17 11/18/18 Isosorbide Mononitrate ER [Imdur] 30 mg PO DAILY 09/22/17 11/18/18 Metoprolol Succinate 100 mg PO DAILY 09/22/17 11/18/18 Ranitidine HCl [Heartburn Relief] 150 mg PO BID 09/22/17 11/18/18 Atorvastatin Calcium 20 mg PO QPM 04/13/18 11/18/18 Furosemide 40 mg PO DAILY #30 tablet 04/15/18 11/18/18 Nitroglycerin [Nitrostat] 0.4 mg SL Q5MIN PRN #30 tablet 04/15/18 11/18/18 Potassium Chloride [K-Dur] 20 meq PO DAILYWM #30 tablet 04/15/18 11/18/18 Albuterol Sulf [Ventolin Hfa 2 puffs INH Q4H PRN 11/19/18 11/19/18 Inhaler] glipiZIDE ER [Glucotrol Xl] 2.5 mg PO DAILY 11/19/18 11/19/18 Cephalexin [Keflex] 250 mg PO BID #10 capsule 11/21/18 Saccharomyces Boulardii [Florastor] 250 mg PO DAILY #5 capsule 11/21/18 predniSONE [Deltasone] 10 mg PO [id number] #[id number] tab 11/21/18 - PHYSICAL EXAM AT DISCHARGE General Appearance: positive: No acute distress, Alert. negative: Lethargic Eyes Bilateral: positive: Normal inspection, PERRL, No lid inflammation, Conjunctivae nml ENT: positive: ENT inspection nml, Pharynx nml, No signs of dehydration. negative: Purulent nasal drainage, Pharyngeal erythema, Oral lesions Neck: positive: Nml inspection, Thyroid nml, No JVD, Trachea midline. negative: Thyromegaly, Stiff neck, Swelling/bruising, Tracheal deviation Respiratory: positive: Chest non-tender, No respiratory distress. negative: Wheezes, Rales, Rhonchi Cardiovascular: positive: Regular rate & rhythm, No murmur, No gallop. negative: Irregularly irregular, Extrasystoles, Tachycardia, Bradycardia, JVD present, Systolic murmur, Diastolic murmur Peripheral Pulses: positive: 2+ Abdomen: positive: Non-tender, No organomegaly, Nml bowel sounds, No distention. negative: Tenderness, Guarding, Rebound Back: positive: Nml inspection. negative: CVA tenderness (R), CVA tenderness (L) Skin: positive: Color nml, No rash, Warm, Dry. negative: Cyanosis, Diaphoresis, Pallor Extremities: positive: Non-tender, Full ROM, Nml appearance. negative: Calf ten derness, Joint swelling, Keon's sign/cords Neurologic/Psychiatric: positive: Oriented x3, Sensation nml, Mood/affect nml. negative: Weakness, Sensory loss, Facial droop, Slurred/abnml speech, Depressed mood/affect - LABS Result Diagrams: 11/21/18 04:45 11/21/18 04:45 - SEPSIS Current Stage of Sepsis: Ruled out - FOLLOW UP Follow Up: You may followup your PCP in one week, followup your inspector production plastic parts and multiple punch press operator as out-pt. You are prescribed antibiotics to continue your treatment course. Should your symptoms return or worsen, you may present ER or call 911 or your PCP for help. - TIME SPENT Time Spent in Discharge (Minutes): 55
[2018-11-22] MEDS ORDERED: predniSONE 20 MG TABLET PO SCH (08:00)
== END 2018-11-21 11:20 | disposition home or self-care (01) | DRG 194 ==
LOC: ED 17:49 → MS2 20:24 → OBSVTOIN 11-19 10:10
PROVIDERS: ADMIT Nurse Practitioner Gerontology; ATTEND Nurse Practitioner Gerontology
DX: J18.9 Pneumonia, unspecified organism (principal); I13.0 Hypertensive heart and chronic kidney disease with heart failure and stage 1 through stage 4 chronic kidney disease, or unspecified chronic kidney disease; N17.9 Acute kidney failure, unspecified; N39.0 Urinary tract infection, site not specified; E11.22 Type 2 diabetes mellitus with diabetic chronic kidney disease; E11.65 Type 2 diabetes mellitus with hyperglycemia; N18.9 Chronic kidney disease, unspecified; I50.9 Heart failure, unspecified; I25.10 Atherosclerotic heart disease of native coronary artery without angina pectoris; Z95.1 Presence of aortocoronary bypass graft; I25.2 Old myocardial infarction; R01.1 Cardiac murmur, unspecified; J44.9 Chronic obstructive pulmonary disease, unspecified; R35.1 Nocturia; R35.0 Frequency of micturition; F20.9 Schizophrenia, unspecified; G89.29 Other chronic pain; M54.9 Dorsalgia, unspecified; Z90.710 Acquired absence of both cervix and uterus; R19.7 Diarrhea, unspecified; Z90.721 Acquired absence of ovaries, unilateral; R00.1 Bradycardia, unspecified; Z87.891 Personal history of nicotine dependence; Z79.82 Long term (current) use of aspirin; Z79.52 Long term (current) use of systemic steroids; Z79.84 Long term (current) use of oral hypoglycemic drugs; K21.9 Gastro-esophageal reflux disease without esophagitis
CPT/HCPCS: 36415; 71045; 71046; 80048; 80053; 81001; 81003; 83036; 83605; 83690; 85025; 85027; 87040; 87045; 87046; 87086; 87275; 87276; 87493; 93005; 93306; 94640; 94761; 96361; 96365; 96366; 96367; 99283; 99284

== ENCOUNTER 2018-11-24 15:41 | Outpatient (CLI) | payer MEDICARE, MEDICAID | END 2018-11-24 15:42 | disposition critical access hospital (66) | LOC: EMS 15:41 | PROVIDERS: ATTEND Surgery | DX: R06.2 Wheezing (principal); Z72.4 Inappropriate diet and eating habits; R68.89 Other general symptoms and signs; Z91.14 Patient's other noncompliance with medication regimen | CPT/HCPCS: A0425; A0427 ==